=== PATIENT | male | born 1950 | race Caucasian/White ===

== ENCOUNTER 2025-11-01 17:16 | Inpatient (IN) | payer OTHER, SELFPAY ==
[2025-11-01 10:01] VITALS: BP 142/84
[2025-11-01 13:27] VITALS: BP 122/65
[2025-11-01 13:43] LABS: Hematocrit 47.5 % (39.0-52.0); Hemoglobin 16.1 g/dL (13.0-18.0); Mean Corp Hgb Conc. 33.9 g/dL (33.0-37.0); Mean Corpuscular Volume 85.6 fL (80.0-94.0); Nucleated Red Blood Cells % 0 % (-); Platelet Count 223 10^3/uL (130-400); Red Cell Dist. Width 13.9 % (11.5-14.5)
[2025-11-01 13:55] LABS: INR 1.15; PT 14.8 Sec (11.4-14.6)
[2025-11-01 13:58] LABS: Blood Urea Nitrogen 20 mg/dl (9-20); Calcium 9.8 mg/dl (8.4-10.2); Carbon Dioxide 29 mmol/L (22-30); Chloride 101 mmol/L (98-107); Glucose 98 mg/dl (70-99); Sodium 138 mmol/L (135-145); eGFR > 60.00
[2025-11-01 14:00] VITALS: BP 125/79
[2025-11-01 14:11] LABS: Troponin I 0.036 ng/ml
--- NOTE | 2025-11-01 14:50 | ED.GENMED ---
History of Present Illness
<Gary Peck PA-C - Last Filed: 11/01/25 16:49>
General
Chief Complaint: Breathing Problem
Time Seen by Provider: 11/01/25 13:03
History of Present Illness
History of Present Illness:
75-year-old male with history of hypertension and sleep apnea presents to the emergency department for evaluation of dyspnea on exertion over the past week. He is a [employer] and quite active typically, he reports breathlessness with simple activities
and decreased exercise tolerance. Denies any chest pain at rest or with exertion. No leg swelling or calf cramping. No paroxysmal nocturnal dyspnea although he does wear BiPAP at nighttime. No prior history of coronary disease
Past History
<Gary Peck PA-C - Last Filed: 11/01/25 16:49>
Past History
ED Past Medical History: HTN and Other (Sleep apnea)
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
Social History
Tobacco: Non-smoker
Alcohol: None
Drug: None
Personal:
Living: with family
Review of Systems
<Gary Peck PA-C - Last Filed: 11/01/25 16:49>
Review of Systems
Allergies reviewed?: Yes
All Other Systems: ROS reviewed and negative except as documented in HPI and ROS
Phy Exam
<Gary Peck PA-C - Last Filed: 11/01/25 16:49>
Physical Exam
Physical Exam:
GEN: Well appearing, NAD, WDWN
HEENT: Oral mucosa moist, no scleral icterus
Cardiac: Irregular and tachycardic, no murmur
Lung: No respiratory distress, no tachypnea, lungs CTAB
MSK: No gross deformity or injuries, no significant pedal edema
Skin: Good color, no pallor or jaundice, no rashes
Neuro: AO x3, moves all extremities freely
Psych: Calm, cooperative
Scores
<Gary Peck PA-C - Last Filed: 11/01/25 16:49>
Heart Failure Risk
Heart Failure Risk Score: Not Applicable
Course
<Gary Peck PA-C - Last Filed: 11/01/25 16:49>
Orders/Labs/Results
Orders:
Orders
11/01/25 10:04
EKG [Electrocardiogram (*1)] Urgent
Reason for Study: Shortness of Breath
CR Chest - 2 Views Urgent
Comment:
Reason For Exam: SOB
11/01/25 10:05
EKG- Treatment ONCE
11/01/25 13:25
Basic Metabolic Panel Urgent
Complete Blood Count/With Diff Urgent
NT-proBNP Urgent
Prothrombin Time Urgent
Troponin I Urgent
11/01/25 15:14
Potassium Urgent
TSH Urgent
Comment: ADDON
11/01/25 16:10
Add On- LAB Urgent
Tests Added?: tsh
11/01/25 16:23
Furosemide [Lasix] 20 mg IV NOW STA
Potassium Chloride [KCl] 20 meq PO NOW STA
11/01/25 16:27
Admit/Transfer Patient As Directed
Co-Sign Provider:
Level of Care: Inpatient admission
Assign to:: Telemetry
Physician / Group: Hospitalist
Diagnosis: Acute CHF
Reason for Telemetry: Arrhythmia
Date to Stop Telemetry: 11/04/25
Time to Stop Telemetry: 11:00
Reason for Hospitalization: Acute CHF
Expected length of stay greater than two midnights?: Yes
ELOS- Estimated Length of Stay in days: 3
I certify the patient meets the requirements for IP care: Yes
PRN Pain Medication Management As Directed
May give lesser potent ordered pain med per pt: Yes
preference::
Protocol:: Medication orders for pain may be administered in a
manner that supports deferring to patient preference
when the pt is:
- Requesting an ordered lesser potent pain medication.
Least to most potent pain medications are defined
as: acetaminophen < NSAID < tramadol < opioids
(morphine, oxycodone, hydromorphone).
- Requesting a lesser dose of the same medication IF
ORDERED.
- Requesting a less intrusive route of administration
if both routes are prescribed by the provider (PO <
IV).
11/01/25 16:31
Code Status As Directed
Resuscitation Status: Limited DNR
Limited DNR: -No intubation
11/02/25 06:00
Hemoglobin A1c [Glycohemoglobin (HgbA1c)] IN AM
11/04/25 11:00
DC Protocol for Telemetry ONCE
Abnormal Lab Results
11/01/25 11/01/25
13:25 15:14
Absolute Neuts (auto) 7.1 H 10^3/uL
(1.4-6.5)
Absolute Monos (auto) 1.0 H 10^3/uL
(0.1-0.6)
Monocytes % 9.8 H %
(1.7-9.3)
PT 14.8 H Sec
(11.4-14.6)
Potassium 3.4 L mmol/L
(3.5-5.1)
Troponin I 0.036 H* ng/ml
11/01/25 13:25
11/01/25 15:14
Vital Signs
Initial and Last Documented VS:
Initial Vital Signs
Temp Pulse Resp BP Pulse Ox
98.8 F 82 17 142/84 97
11/01/25 10:01 11/01/25 10:01 11/01/25 10:01 11/01/25 10:01 11/01/25 10:01
Last Documented Vital Signs
Temp Pulse Resp BP Pulse Ox
98.8 F 95 21 134/78 97
11/01/25 10:01 11/01/25 15:15 11/01/25 15:15 11/01/25 15:00 11/01/25 14:53
<Amalia Shaffer, - Last Filed: 11/01/25 16:18>
Orders/Labs/Results
Orders:
Orders
11/01/25 10:04
EKG [Electrocardiogram (*1)] Urgent
Reason for Study: Shortness of Breath
CR Chest - 2 Views Urgent
Comment:
Reason For Exam: SOB
11/01/25 10:05
EKG- Treatment ONCE
11/01/25 13:25
Basic Metabolic Panel Urgent
Complete Blood Count/With Diff Urgent
NT-proBNP Urgent
Prothrombin Time Urgent
Troponin I Urgent
11/01/25 15:14
Potassium Urgent
TSH Urgent
Comment: ADDON
11/01/25 16:10
Add On- LAB Urgent
Tests Added?: tsh
11/01/25 16:23
Furosemide [Lasix] 20 mg IV NOW STA
Potassium Chloride [KCl] 20 meq PO NOW STA
11/01/25 16:27
Admit/Transfer Patient As Directed
Co-Sign Provider:
Level of Care: Inpatient admission
Assign to:: Telemetry
Physician / Group: Hospitalist
Diagnosis: Acute CHF
Reason for Telemetry: Arrhythmia
Date to Stop Telemetry: 11/04/25
Time to Stop Telemetry: 11:00
Reason for Hospitalization: Acute CHF
Expected length of stay greater than two midnights?: Yes
ELOS- Estimated Length of Stay in days: 3
I certify the patient meets the requirements for IP care: Yes
PRN Pain Medication Management As Directed
May give lesser potent ordered pain med per pt: Yes
preference::
Protocol:: Medication orders for pain may be administered in a
manner that supports deferring to patient preference
when the pt is:
- Requesting an ordered lesser potent pain medication.
Least to most potent pain medications are defined
as: acetaminophen < NSAID < tramadol < opioids
(morphine, oxycodone, hydromorphone).
- Requesting a lesser dose of the same medication IF
ORDERED.
- Requesting a less intrusive route of administration
if both routes are prescribed by the provider (PO <
IV).
11/01/25 16:31
Code Status As Directed
Resuscitation Status: Limited DNR
Limited DNR: -No intubation
11/02/25 06:00
Hemoglobin A1c [Glycohemoglobin (HgbA1c)] IN AM
11/04/25 11:00
DC Protocol for Telemetry ONCE
Abnormal Lab Results
11/01/25 11/01/25
13:25 15:14
Absolute Neuts (auto) 7.1 H 10^3/uL
(1.4-6.5)
Absolute Monos (auto) 1.0 H 10^3/uL
(0.1-0.6)
Monocytes % 9.8 H %
(1.7-9.3)
PT 14.8 H Sec
(11.4-14.6)
Potassium 3.4 L mmol/L
(3.5-5.1)
Troponin I 0.036 H* ng/ml
11/01/25 13:25
11/01/25 15:14
Vital Signs
Initial and Last Documented VS:
Initial Vital Signs
Temp Pulse Resp BP Pulse Ox
98.8 F 82 17 142/84 97
11/01/25 10:01 11/01/25 10:01 11/01/25 10:01 11/01/25 10:01 11/01/25 10:01
Last Documented Vital Signs
Temp Pulse Resp BP Pulse Ox
98.8 F 95 21 134/78 97
11/01/25 10:01 11/01/25 15:15 11/01/25 15:15 11/01/25 15:00 11/01/25 14:53
<Gary Peck PA-C - Last Filed: 11/01/25 16:49>
MDM/Problems Addressed
MDM/Problems Addressed:
75-year-old male presented with exertional dyspnea found to have mildly elevated proBNP and troponin. Clinical picture CHF given pulmonary edema/interstitial findings on chest x-ray. Will require admission to the hospital for further management.
Telemetry noted for periods of atrial tachycardia with ectopy, do not see any evidence for A-fib
<Gary Peck PA-C - Last Filed: 11/01/25 16:49>
Comment
Comment:
EKG independently interpreted by me shows a sinus tachycardia at a rate of 104 with ectopy
Telemetry monitoring shows narrow complex tachycardia with severe ectopy, likely multifocal atrial tachycardia
*Pulse Oximetry
SaO2: 97
Oxygen Mode of Delivery: Room air
Patient hypoxic: no
*Critical Care Note
Total Time (30-74mins, 75-104mins- exclusive of procedures): Not Applicable
ED Attending Note
<Gary Peck PA-C - Last Filed: 11/01/25 16:49>
-
Portions of this chart may have been created with voice recognition software.� Occasional wrong word or��sound alike� substitutions may have occurred due to the inherent limitations of voice recognition software.
<Amalia Shaffer DO - Last Filed: 11/01/25 16:18>
ED Attending Note
Patient seen and examined by attending physician: Yes
I performed the substantive portion of visit, reviewed & personally made and approve the management plan that is documented in note by myself or MICHELLE.: Yes
I performed a history and physical exam of patient and discussed management with resident, I reviewed resident's note and agree with documented findings and plan of care.: Yes
ED Attending Note:
75-year-old male with no known cardiac history presenting to the emergency department with worsening dyspnea. Notes increasing dyspnea with exertion over the past week. Does note some family history of cardiac disease. Denies any associated chest
pain. Does also note some lower extremity swelling. Reports dyspnea with previously tolerated activities. Denies cough or fever. Vital signs on arrival are normal.
On exam patient is resting comfortably, no acute distress. No increased work of breathing. However on lung exam, crackles at the bases. Also noted to have some mild swelling to bilateral lower extremities, symmetric. Labs and chest x-ray imaging
obtained prior to my assessment. EKG nonischemic. Labs show elevated BNP and minimal elevation of troponin, suspected to be from ischemic demand rather than ACS in the absence of any present chest pain. Chest x-ray confirms signs of pulmonary
edema. At this time concern for new onset CHF. Plan for admission with cardiac consultation. Will start Lasix
Discharge Plan
Departure
Patient Disposition: Admit
Date of Disposition: 11/01/25
Time of Disposition: 14:53
Admit to: Telemetry
Presentation/result/management discussed w/ accepting MD/DO: Hospitalist
Discharge Problem:
Acute CHF
Prescriptions:
No Action
lutein 20 MG tablet
20 mg PO DAILY
docusate sodium 100 MG capsule
100 mg PO BID
amlodipine [Norvasc] 10 MG tablet
10 mg PO DAILY Qty: 0 0RF
Rx Instructions:
Hold if systolic blood pressure <130 while on Tramadol.
multivitamin Tablet
1 tab PO DAILY
benazepril-hydrochlorothiazide 20-25 mg Tablet
1 tab PO BID
Referrals:
Aamir Avalos MD [Family Provider, Internal Medicine]
Interventions
Interventions:
*General Assessment Last Done: 11/01/25 10:04
*Neglect/Abuse Screening Last Done: 11/01/25 10:04
*ED COVID-19 Vaccine History Last Done: 11/01/25 10:04
*ED Influenza Vaccine History Last Done: 11/01/25 10:04
[facility] Fall Risk Assessment Tool Last Done: 11/01/25 09:44
*Risk Screen - Suicide (C-SSRS) Last Done: 11/01/25 10:04
ED- Cardiac Assessment Last Done: 11/01/25 14:45
ED- Pulmonary Assessment Last Done: 11/01/25 14:45
Discharge Date and Time
Print Language: SINHALA
[2025-11-01 15:00] VITALS: BP 134/78
[2025-11-01 15:41] LABS: Potassium 3.4 mmol/L (3.5-5.1)
--- NOTE | 2025-11-01 17:02 | HPS.HSE ---
Addendum entered and electronically signed by Angelique Feliciano MD 11/01/25 18:08:
I personally performed a history and physical exam of the patient and discussed management with the resident. I reviewed the resident's note and agree with the documented findings and plan of care HPI/CC.
GENERAL: well developed, well nourished, male in no apparent distress
HEENT: NC/AT--no O2 requirements--no JVD
HEART: irreg irreg
LUNGS : clear to auscultation bilaterally--no crackles
ABDOM: soft, nontender, nondistended, + bowel sounds
EXT: no cyanosis, clubbing-- 2+ pitting edema bilaterally
NEUROLOGIC: grossly intact
Dyspnea on exertion-- does not give good story for PE, CHF, infection, COPD --possibly mild CHF exacerbation from new onset atrial tachycardia (think afib vs sinus with PVC, PACs giving irregular heart exam) or ischemic demand due to increased
heart rate from arrhythmia--wants to see Dr. Spangler for cards follow up--consult [facility]--check ECHO--lasix 20 mg IV daily--check TFTs, mag, potassium--would check CT scan chest PE study to rule out--Metoprolol 5mg IV Q6 for rate control and CHF
--check lipids
elevated troponin-non ischemic myocardial injury due to acute heart failure vs ischemic demand from tachycardia /arrhythmia-trending troponin
lower extremity edema--does take norvasc at elevated dose which can cause edema--no suspicion for DVT--cont lasix--if CT PE positive then would check US to r/o DVT, if CT neg, would not as no suspicion for DVT
Essential Hypertension --stop amlodipine and benazepril-hydrochlorothiazide--start Lopressor 5 mg q6 and lasix
obstructive sleep apnea --continue bipap
DVT proph- Lovenox
code status -Limited DNR (NO INTUBATION)
Original Note:
Family Physician
-
Family Physician: Aamir Avalos
Chief Complaint
-
Shortness of breath on excretion
History of Present Illness
75-year-old male with history of hypertension and sleep apnea presents to the emergency department for evaluation of dyspnea on exertion that has been progressed over the past week. He is a [employer] and quite active typically, he reports
breathlessness with simple activities and decreased exercise tolerance. Denies any chest pain at rest or with exertion. No leg swelling or calf cramping. No paroxysmal nocturnal dyspnea although he does wear BiPAP at nighttime. No prior history
of coronary disease. Denies dizziness , lightheadedness.
Medical History
Past Medical History
Past Medical History: Reports Other
Additional Past Medical History:
Hypertension, Sleep apnea on BIPAP
Past Surgical History: Reports Orthopedic (Bilateral knee replacement , left hip replacement )
Social History
Tobacco: Non-smoker
Alcohol: None
Drug: None
Personal:
Living: With Family
Employment: Employed
Family History
Family History: Other (father with premature heart attach , Mother with CHF, brother with A.fib and CAD with stent , DM2)
Allergies / Home Medications
Allergies reflects when Allergies were last updated in [facility].
Allergies
Allergy/AdvReac Type Severity Reaction Status Date / Time
No Known Allergies Allergy Verified 11/01/25 10:02
Home Medications
lutein 20 mg tablet 20 mg PO DAILY 11/01/16
docusate sodium 100 mg capsule 100 mg PO BID 10/22/20
amlodipine 10 mg tablet (Norvasc) 10 mg PO DAILY ##0 11/18/20
benazepril 20 mg-hydrochlorothiazide 25 mg tablet 1 tab PO BID 07/06/23
multivitamin 1 tab PO DAILY 07/06/23
Home Medications with original date entered in [facility]
Allergy/Medication List:
Allergies
Allergy/AdvReac Type Severity Reaction Status Date / Time
No Known Allergies Allergy Verified 11/01/25 10:02
Home Medications
lutein 20 mg tablet 20 mg PO DAILY 11/01/16
docusate sodium 100 mg capsule 100 mg PO BID 10/22/20
amlodipine 10 mg tablet (Norvasc) 10 mg PO DAILY ##0 11/18/20
benazepril 20 mg-hydrochlorothiazide 25 mg tablet 1 tab PO BID 07/06/23
multivitamin 1 tab PO DAILY 07/06/23
Review of Systems
-
History Source: Patient
Constitutional: Reports No Symptoms
Respiratory: Reports Cough
Cardiac: Reports Other (shortness of breath on exertion )
Abdomen/GI: Reports No Symptoms
: Reports No Symptoms
Musculoskeletal: Reports Edema (Bilateral leg edema )
Physical Exam
Vital Signs
Vital Signs
Temp Pulse Resp BP Pulse Ox
98.8 F 95 21 134/78 97
11/01/25 10:01 11/01/25 15:15 11/01/25 15:15 11/01/25 15:00 11/01/25 14:53
Physical Exam
General: Well Developed, Well Nourished and No Apparent Distress
HEENT: NormoCephalic, Anicteric and Moist mucous membranes
Respiratory: Clear
Cardiac: S1/S2 and Irregular Rhythm
GI: Soft, Non Tender, Non Distended and Normal Bowel Sounds
Musculoskeletal: Edema, Left Lower Extremity and Edema, Right Lower Extremity
Skin: Warm and Dry
Neuro: Awake, Alert, Oriented and AO x 3
Psych: Calm
Laboratory Results
-
11/01/25 13:25
11/01/25 15:14
Laboratory Results
PT 14.8 Sec (11.4-14.6) H 11/01/25 13:25
INR 1.15 11/01/25 13:25
Total Bilirubin Cancelled 11/01/25 13:25
AST Cancelled 11/01/25 13:25
ALT Cancelled 11/01/25 13:25
Alkaline Phosphatase Cancelled 11/01/25 13:25
Troponin I 0.036 ng/ml H* 11/01/25 13:25
Impression/Plan
-
IMPRESSION:
75-year-old male with no known cardiac history presenting to the emergency department with worsening dyspnea. Notes increasing dyspnea with exertion over the past week. Does note some family history of cardiac disease. Denies any associated chest
pain. Does also note some lower extremity swelling. Reports dyspnea with previously tolerated activities. Denies cough or fever. Vital signs on arrival are normal.
EKG nonischemic. Labs show elevated BNP and minimal elevation of troponin, suspected to be from ischemic demand rather than ACS in the absence of any present chest pain. Chest x-ray confirms signs of pulmonary edema. At this time concern for new
onset CHF. Plan for admission with cardiac consultation.
PLAN:
#Dyspnea on exertion
Atrial tachycardia vs A. fib that exacerbates underlying CHF vs ischemic demand due to increased heart rate from arrhythmia less likely PE
- chest x ray Mild interstitial opacities with minimal lower lobe airspace opacities. There are small opacity within the minor fissure. Blunting of the costophrenic angle suggestive of trace pleural effusions.
- start 20 mg lasix IV stat and another done late evening
- BNP 873
- Metoprolol 5mg IV Q6 for rate control and CHF
- lipid panel
- ECHO
- Cardiology consulted
#Atrial tachycardia
-Atrial tachycardia vs A. fib , less likely PE
-D dimer
-TSH
-start Lopressor 5mg q6
#elevated troponin
-non ischemic myocardial injury due to acute heart failure vs ischemic demand from tachycardia /arrhythmia
-trending troponin
#Leg swelling
-likely acute CHF
-start Lasix 20 mg BID
# Hypertension
stop amlodipine and benazepril-hydrochlorothiazide
start Lopressor 5 mg q6
#sleep apnea
continue bipap
DVT - Lovenox
code status -Limited DNR (NO INTUBATION)
[2025-11-01] MEDS: LASIX 20 MG IV ×2 (17:03→20:28)
[2025-11-01] MEDS: KCL 20 MEQ PO (17:04)
[2025-11-01 18:00] LABS: TSH 2.62 uIU/ml (0.47-4.68)
[2025-11-01 18:46] VITALS: BP 118/75
[2025-11-01 18:47] VITALS: BMI 35.9
[2025-11-01 19:32] LABS: D-Dimer 1.89 ug/mlFEU (0.00-0.50)
[2025-11-01] MEDS: LOVENOX 40 MG SC (19:46)
[2025-11-01] MEDS: LOPRESSOR 5 MG IV (19:46)
[2025-11-01 20:00] LABS: Magnesium 1.8 mg/dl (1.6-2.3)
[2025-11-01 20:08] LABS: Troponin I 0.039 ng/ml
[2025-11-01 23:32] VITALS: BP 106/62
[2025-11-02] VITALS (13 sets, daily range): BP systolic 99–130; BP diastolic 57–74; BMI 35.0
[2025-11-02] MEDS: LOPRESSOR IV ×2 (01:29→06:14)
[2025-11-02 02:00] LABS: Troponin I 0.042 ng/ml
[2025-11-02 07:50] LABS: Hematocrit 49.4 % (39.0-52.0); Hemoglobin 16.9 g/dL (13.0-18.0); Mean Corp Hgb Conc. 34.2 g/dL (33.0-37.0); Mean Corpuscular Volume 86.7 fL (80.0-94.0); Platelet Count 209 10^3/uL (130-400); Red Cell Dist. Width 14.1 % (11.5-14.5)
[2025-11-02 08:09] LABS: Troponin I 0.047 ng/ml
--- NOTE | 2025-11-02 09:05 | CON.CAR ---
Addendum entered and electronically signed by Filiberto Pruitt MD 11/02/25 12:12:
I reviewed and agree with the note by TRACEY and it accurately reflects our care.
I saw and evaluated the patient, and I provided the substantive portion of the medical decision making. My assessment and plan is below:
75-year-old man with hypertension, obstructive sleep apnea, and obesity who presents with dyspnea on exertion for the past 10 days. He denies chest pain/pressure. He does not monitor his weight, thinks he may have some mild worsening of chronic
lower extremity edema. Denies orthopnea and palpitations.
Physical exam: Irregular rhythm, no murmurs, bibasilar crackles, 1+ edema to mid shins bilaterally
TTE 11/02/2025: LVEF 25-30%, mildly dilated LV, global hypokinesis, mild AR, mild MR
Labs notable for troponin 0.036 -> 0.047
ECG: Sinus rhythm with PACs and PVCs
Acute heart failure with reduced ejection fraction: Unclear etiology. Plan for left heart catheterization today. Start metoprolol XL 25 mg daily and spironolactone 25 mg daily. We will ask case management to bruno Entresto and SGLT2 inhibitor.
Continue IV Lasix 20 mg twice daily.
Multifocal atrial tachycardia: Asymptomatic. Start beta-louisa as above.
Troponin elevation: Most likely represents acute nonischemic myocardial injury in the setting of CHF exacerbation.
Original Note:
Consultation
Consultation Request
Date/Time Consultation Requested: 11/02/25 0846
Date/Time Consultation Performed: 11/02/25 0900
Requesting Provider: Dr. Mccarty
Performing Provider: Antoinette WEBB for Dr. Pruitt
Reason for Consultation: NIETO, possible CHF, PAC's
Medical History
-
Chief Complaint: SOB
History of Present Illness:
75 y/o male with hypertension, sleep apnea on Bipap, and obesity who is here for about 1.5 weeks of progressive NIETO. He is friends with athletic monitor Dr. Spangler who recommended he go to ER for evaluation. He is admitted for further evaluation dn we
are consulted to assess for possible CHF/arrhythmia. He was started on metoprolol and Lasix. At the time of my assessment, he is calm and comfortable. He is OOB to chair. Troponin is minimally elevated. He denies any CP. EKG shows SR with
PAC's/PVC's. Denies any weight gain, orthopnea, PND, or increased edema.
Past Medical History
Past Medical History: HTN and Other (as above)
Social History
Tobacco: Non-Smoker
Alcohol: None
Drug: None
Employment: Employed ([employer] )
Family History
Family History: Early CAD (dad)
Allergies / Home Medications
Allergy/AdvReac Type Severity Reaction Status Date / Time
No Known Allergies Allergy Verified 11/01/25 10:02
�Medication �Instructions �Recorded �Confirmed �Type
lutein 20 mg tablet 20 mg PO DAILY Supplement 11/01/16 11/01/25 History
docusate sodium 100 mg capsule 100 mg PO BID STOOL SOFTENER 10/22/20 11/01/25 History
amlodipine 10 mg tablet (Norvasc) 10 mg PO DAILY ##0 11/18/20 11/01/25 Rx
benazepril 20 1 tab PO BID Blood Pressure 07/06/23 11/01/25 History
mg-hydrochlorothiazide 25 mg tablet
multivitamin 1 tab PO DAILY Supplement 07/06/23 11/01/25 History
Review of Systems
-
History Source: Patient
All other systems: Negative unless noted
Respiratory: Trouble Breathing
Physical Exam
Vital Signs
Temp Pulse Resp BP Pulse Ox
97.6 F 88 20 92/55 94
11/02/25 03:25 11/02/25 06:14 11/02/25 03:25 11/02/25 06:14 11/02/25 03:25
Lab Results
11/02/25 07:30
Troponin I 0.047 ng/ml H* 11/02/25 07:30
Cid-O-Eoislhetank Pept 873 pg/ml 11/01/25 13:25
Physical Exam
General: Well Developed and Well Nourished
HEENT: Normocephalic and Anicteric
Respiratory: Clear and Non Labored Respirations
Cardiac: Irregular Rhythm
Musculoskeletal: Edema (mild BLE edema)
Skin: Warm and Dry
Neuro: AO x 3
Psych: Calm
Impression / Plan
-
NIETO:
-possible acute HF (type unknown)- BNP mildly elevated, but otherwise denies any orthopnea, PND, weight gain, or increased edema (chronic mild BLE edema noted); monitor response to IV diuresis (which requires intensive monitoring). I don't think he
will need too much more. Obtain echo.
-also with periods of MAT on monitor to my review (though I will review with athletic monitor). Denies any history of smoking/lung disease. Also with PAC's, PVC's. Follow telemetry. Replace K+. Received a dose of IV metoprolol, will transition to PO-
monitor telemetry
-of note, plans to follow with Dr. Spangler in follow-up (his friend/athletic monitor).
Abnormal troponin:
-suspect acute, non-ischemic myocardial injury in setting of tachycardia and possible mild CHF (see above)
-denies CP
-check echo
HTN:
-stable, though on low end occasionally
-on CCB/ACEI/HCTZ as OP- these are held and he is now on metoprolol and Lasix
Sleep apnea:
-stable in that he is compliant with bipap
Data Reviewed
-
EKG: Tracing Personally Visualized and interpreted (SR with PAC's and PVC's)
Radiology: Report Reviewed by me (CXR: Mild interstitial opacification with minimal basilar airspace opacities. This likely represents mild edema, however pneumonia cannot be excluded. Blunting of the costophrenic angle suggestive of trace pleural
effusions. Additionally there is a small opacity in the right minor fissure)
CT Scan: Report Reviewed by me (No acute disease of the chest. No pulmonary embolus. Tiny bilateral pleural effusions. Mild cardiomegaly Probable left adrenal mass. Incompletely imaged. Nonurgent CT examination of the adrenal glands or MRI
examination recommended when the patient is able.)
Medical Tests (Nuc Med, Echo etc): Other (echo ordered and pending)
Labs: Labs Reviewed by me
[2025-11-02 09:19] LABS: ALT (SGPT) 37 U/L (0-50); AST (SGOT) 37 U/L (17-59); Albumin 4.9 g/dl (3.5-5.0); Alkaline Phosphatase 83 U/L (38-126); Blood Urea Nitrogen 17 mg/dl (9-20); Calcium 10.2 mg/dl (8.4-10.2); Carbon Dioxide 30 mmol/L (22-30); Chloride 101 mmol/L (98-107); Estimated Creatinine Clearance 96 ml/min; Glucose 126 mg/dl (70-99); HDL Cholesterol 71 mg/dl; LDL Cholesterol, Calculated 98 mg/dl; Potassium 3.7 mmol/L (3.5-5.1); Sodium 139 mmol/L (135-145); Total Protein 8.3 g/dl (6.3-8.2); Very Low Density Lipoprotein 24 mg/dl (0-30); eGFR > 60.00
--- NOTE | 2025-11-02 09:42 | W.PN.HOSP.TC ---
Today's Communication/Plan
-
Echocardiogram
EKG
Per Cardiology :
-Plan for left heart catheterization today
-Start metoprolol XL 25 mg daily
-Start spironolactone 25 mg daily
-ask case management to bruno Entresto and SGLT2 inhibitor
-Continue IV Lasix 20 mg twice daily.
NPO today for cath today
Assessment / Plan
Assessment / Plan
#Dyspnea on exertion
#Type II NSTEMI
#Sinus tachycardia with PACs/PVCs
#Acute heart failure with reduced ejection fraction: Unclear etiology.
Cardiology consulted- TTE 11/02/2025: LVEF 25-30%, mildly dilated LV, global hypokinesis, mild AR, mild MR
Question an arrhythmia associated cardiomyopathy, intermittent tachycardia on arrival, BNP 873
Was started on IV Lasix 20 mg twice daily with good urine output though developed hypotension
Upon arrival troponin trend flat, peaked at 0.47, ECG without acute ischemic findings, Most likely represents acute nonischemic myocardial injury in the setting of CHF exacerbation.
Plan
cardiology following
Continue IV Lasix 20mg BID
Discontinue Lopressor IV 5mg Q6
Plan for left heart catheterization today
Start metoprolol XL 25 mg daily
Start spironolactone 25 mg daily
We contact case management to bruno Entresto and SGLT2 inhibitor
Consider LHC/RHC
Monitor telemetry
BMP + I's and O's + weights
#Primary hypertension
Home medications include benazepril, HCTZ, amlodipine
Blood pressure here soft following IV diuresis, holding home regimen
Plan to reinitiate antihypertensive regimen as hemodynamics improved
#SWATI on nightly BiPAP
Utilizes BiPAP 10/5 nightly, SWATI secondary to obese habitus
Continue with nightly BiPAP here nightly and encourage compliance at discharge
TTE for signs of RV strain or pulmonary hypertension:
TTE 11/02/2025: LVEF 25-30%, mildly dilated LV, global hypokinesis, mild AR, mild MR
Diet: NPO for possible cat
DVT: SQ Lovenox
Code: Limited DNR (no intubation)
Dispo: PT evaluation ordered
Discussed with clean rice grader and reel tender
Anticipated Discharge: 24 - 48 hours
Subjective/Interval History
-
Date of Service: November 02, 2025
He had low blood pressure this morning 90s/50s , metoprolol dose not given. He denies shortness of breath , chest pain, dizziness, lightheadedness.
Objective Data
-
Labs:
Laboratory Results
11/02/25
07:30
WBC 8.9
Hgb 16.9
Hct 49.4
Plt Count 209
Sodium 139
Potassium 3.7
Chloride 101
Carbon Dioxide 30
BUN 17
Creatinine 0.8
Glucose 126 H
Calcium 10.2
Total Bilirubin 2.4 H
AST 37
ALT 37
Alkaline Phosphatase 83
Vital Signs:
Vital Signs
Temp Pulse Resp BP Pulse Ox
98.4 F 98 18 128/74 99
11/02/25 07:30 11/02/25 07:30 11/02/25 07:30 11/02/25 07:30 11/02/25 07:30
I&O
11/01/25 11/02/25 11/03/25
06:59 06:59 06:59
Intake Total 0 / 0
Output Total 1425 / 1425
Balance -1425 / -1425
Review of Systems
-
History Source: Patient
Respiratory: Reports No Symptoms
Cardiac: Reports No Symptoms
Abdomen/GI: Reports No Symptoms
Musculoskeletal: Reports Edema (Bilateral)
Neuro: Reports No Symptoms
Physical Exam
-
General: Well Developed, Well Nourished and No Apparent Distress
Respiratory: Clear to Auscultation
Cardiac: S1/S2 and Irregular Rhythm
GI: Soft, Nontender and Nondistended
Musculoskeletal: Edema, Right Lower Extrem and Edema, Left Lower Extrem
Skin: Warm and Dry
Neuro: Awake, Alert, Oriented and AO x 3
Psych: Calm
[2025-11-02] MEDS: KCL 20 MEQ PO (10:06)
[2025-11-02 10:28] LABS: Glycohemoglobin (HgbA1c) 6.3 % (4.0-5.9)
--- NOTE | 2025-11-02 11:08 | CARDSERVLU ---
Echocardiogram with Lumason completed after protocol screening completed. Allergies verified.
Patent IV site: _Left antecubital 20 G PC____
IV site flushed with 0.9% NaCl pre and post administration.
Diluted bolus method utilized to enhance visualization of ventricular knowles.
Total volume given: ___3_ mL
Patient tolerated all procedures well without complications.
--- NOTE | 2025-11-02 11:32 | CM ---
Addendum entered by Neri Victoria 11/02/25 15:46:
CM consulted for coverage for Farxiga, Jardiance and Entresto. Patient has [employer] rx plan
CM spoke w/ [employer]. All medications are covered and estimated co pays are as follows:
Farxiga 30 day- $144.39, 90 day mail order- $401.03
Jardiance 30 day- $151.54, 90 day- $420.90
Entresto 30 day- $169.76, 90 day- $471.58
Updated ordering physician
Original Note:
Patient seen bedside, initial assessment completed. Patient is a 75-year-old male with history of hypertension and sleep apnea presents to the emergency department for evaluation of dyspnea on exertion.
Patient resides w/ spouse in a 2 story farmhouse, 1 step to enter. Patient's son lives on the other side of the home. Patient is independent w/ ambulation, no device required. Independent w/ ADLs and personal care. Patient uses Bipap at night. No
recent OP PT, last episode 2 years ago. VN about 3 years ago, nothing recent.
Address, point of contact and insurance verified
PCP: Aamir Avalos
Pharmacy: [facility]
PT/OT ordered, will review recommendations if any
Plan: Anticipate home
[2025-11-02] MEDS: LASIX 20 MG IV ×2 (11:37→17:29)
[2025-11-02] MEDS: TOPROL XL 25 MG PO (11:40)
[2025-11-02] MEDS: ASPIRIN 325 MG PO (12:08)
--- NOTE | 2025-11-02 14:27 | PTCARENOTE ---
Addendum entered by Lydia Dalton 11/02/25 14:44:
Consent obtained at bedside by Dr. Macdonald
Original Note:
Patient arrived to [facility] bay 8. Vital signs obtained. Left IV 20G checked. Dr. Macdonald notified. Patient AAOx3. Denies chest pain.
--- NOTE | 2025-11-02 16:54 | ITS.CL.CATH ---
Cnc Mechanic - Catheterization
Cardiac Catheterization
Procedure Report:
RIGHT AND LEFT HEART CATHETERIZATION
Date of Procedure: November 02, 2025
Primary Care Physician: Dr. Aamir Avalos
Primary Bread Wrapper Operator: Dr. Gilson Spangler
Procedures performed:
1: Coronary angiography
2: Left ventriculography
3: Right heart cardiac catheterization
INDICATION: The patient is a 75-year-old man who presents with chest discomfort and mild heart failure. Echo shows severe LV systolic dysfunction. He was referred for right and left heart cardiac catheterization. Of note, he was given IV Lasix
and diuresed and now feels better.
ACCESS: The patient was prepped and draped in usual sterile fashion. A 6 Bahamian sheath was placed in the right radial artery using the Seldinger over the wire technique. A 5 Bahamian sheath was then placed in the right common femoral vein using the
same technique. Due to tortuosity at the takeoff of the great vessel and unusual orientation of the aorta, I elected to abandon the radial approach and gained access with a micropuncture kit in the right common femoral artery using an [id number]
technique with ultrasound guidance. A 6 Bahamian sheath was placed in the right common femoral artery.
HEMODYNAMIC FINDINGS (mmHg):
RA(a,v,m): 15, 10, 10
RV(s/d,EDP): 46/7, 13
PA(s/d/m): 46/25, 28
PCWP(a,v,m): 21, 22, 17
LV(s/d,EDP): 125/20, 38
Ao(s/d,m): 125/74, 97
Oxygen Saturations (mg/dl):
PA: 65% on room air
LV: 91% on room air
Cardiac Output/Index (l/min / l/min/m2):
Estimated Deepika Method: 5.0 / 2.2
VALVE HEMODYNAMICS:
No significant aortic or mitral valve stenosis.
ANGIOGRAPHIC FINDINGS:
Single-plane Left Ventriculography in GUILLORY Projection: Severe global LV systolic dysfunction with LV dilation. Visually estimated ejection fraction 20%. No significant mitral regurgitation.
Coronary Angiography:
Dominance: Right
Left Main: Large-caliber, normal.
Left Anterior Descending: The left anterior descending artery is a large-caliber vessel that tapers down to a medium caliber vessel in the midportion. The LAD gives rise to a small high first diagonal branch and a large bifurcating second diagonal
branch. These vessels have very mild nonobstructive luminal irregularities with normal distal flow.
Left Circumflex: The left circumflex is a very large nondominant vessel that gives rise to a huge bifurcating obtuse marginal branch. This vessel is angiographically normal.
Right Coronary: The right coronary artery is a gigantic dominant vessel that gives rise to a large caliber posterior descending artery and smaller posterior left ventricular branch system. The proximal right has a medina's crook anatomy but the
vessels are otherwise normal with no focal disease.
Fluoroscopy Time (min): 12
Radiation Dose (mGy): 679
DAP (Gy.cm2): 62
Closure device: 6 Bahamian Angio-Seal to right common femoral artery. A TR band was applied for hemostasis at the right wrist. The femoral vein groin sheath will be pulled with manual pressure for hemostasis.
Complications: None.
ASSESSMENT:
1: Very mild nonobstructive coronary artery disease. This is clearly a nonischemic cardiomyopathy.
2: Fairly well compensated filling pressures with moderately elevated pulmonary pressures and more markedly elevated LVEDP.
CONCLUSIONS and RECOMMENDATIONS:
1: Medical therapy for a nonischemic cardiomyopathy with close clinical follow-up.
Parminder Macdonald M.D.
Copy to: Dr. Aamir Avalos
[2025-11-02] MEDS: LOVENOX 40 MG SC (17:28)
[2025-11-03 03:29] VITALS: BP 122/67
[2025-11-03 06:00] VITALS: BMI 34.7
--- NOTE | 2025-11-03 07:15 | W.PN.HOSP.TC ---
Today's Communication/Plan
-
Cardiac cath today
plan for discharge per cardiology recommendation:
-aspirin 81 mg tablet daily with food
-atorvastatin 10 mg daily at bedtime
-Furosemide 20mg tablet daily
-Metoprolol succinate 50mg tablet extended release daily
-spironolactone 25 mg tablet daily
-valsartan 80 mg tablet daily
-follow up with your flotation tender for reassessment for ICD after three months of starting above GDMT medications
Assessment / Plan
Assessment / Plan
#Dyspnea on exertion
#Type II NSTEMI
#Sinus tachycardia with PACs/PVCs
#Acute heart failure with reduced ejection fraction: Unclear etiology.
Cardiology consulted- TTE 11/02/2025: LVEF 25-30%, mildly dilated LV, global hypokinesis, mild AR, mild MR
Question an arrhythmia associated cardiomyopathy, intermittent tachycardia on arrival, BNP 873
Was started on IV Lasix 20 mg twice daily with good urine output though developed hypotension
Upon arrival troponin trend flat, peaked at 0.47, ECG without acute ischemic findings, Most likely represents acute nonischemic myocardial injury in the setting of CHF exacerbation.
TTE for signs of RV strain or pulmonary hypertension:
TTE 11/02/2025: LVEF 25-30%, mildly dilated LV, global hypokinesis, mild AR, mild MR
Heart Cath 11/03/2025:
1: Very mild nonobstructive coronary artery disease. This is clearly a nonischemic cardiomyopathy.
2: Fairly well compensated filling pressures with moderately elevated pulmonary pressures and more markedly elevated LVEDP.
Plan
cardiology following
Continue IV Lasix 20mg BID
Discontinue Lopressor IV 5mg Q6
Plan for left heart catheterization today
Start metoprolol XL 25 mg daily
Start spironolactone 25 mg daily
We contact case management to bruno Entresto and SGLT2 inhibitor
Consider LHC/RHC
Monitor telemetry
BMP + I's and O's + weights
#Primary hypertension
Home medications include benazepril, HCTZ, amlodipine
Blood pressure here soft following IV diuresis, holding home regimen
Plan to reinitiate antihypertensive regimen as hemodynamics improved
#SWATI on nightly BiPAP
Utilizes BiPAP 10/5 nightly, SWATI secondary to obese habitus
Continue with nightly BiPAP here nightly and encourage compliance at discharge
Diet: NPO for possible cat
DVT: SQ Lovenox
Code: Limited DNR (no intubation)
Dispo: PT evaluation ordered
Discussed with flotation tender
Anticipated Discharge: Today
Subjective/Interval History
-
Date of Service: November 03, 2025
No overnight event. He denied chest pain, shortness of breath, light headedness or palpitations.
Objective Data
-
Labs:
Laboratory Results
11/03/25
06:00
WBC Pending
Hgb Pending
Hct Pending
Plt Count Pending
Sodium Pending
Potassium Pending
Chloride Pending
Carbon Dioxide Pending
BUN Pending
Creatinine Pending
Glucose Pending
Calcium Pending
Vital Signs:
Vital Signs
Temp Pulse Resp BP Pulse Ox
98 F 84 20 122/67 93
11/03/25 03:29 11/03/25 03:29 11/03/25 03:29 11/03/25 03:29 11/03/25 03:29
I&O
11/02/25 11/03/25 11/04/25
06:59 06:59 06:59
Intake Total 0 / 0 1200 / 1200
Output Total 1425 / 1425 1600 / 1600
Balance -1425 / -1425 -400 / -400
Review of Systems
-
History Source: Patient
Respiratory: Reports No Symptoms
Cardiac: Reports No Symptoms
Abdomen/GI: Reports No Symptoms
Musculoskeletal: Reports Edema (Bilateral)
Neuro: Reports No Symptoms
Physical Exam
-
General: Well Developed, Well Nourished and No Apparent Distress
Respiratory: Clear to Auscultation
Cardiac: S1/S2 and Irregular Rhythm
GI: Soft, Nontender and Nondistended
Musculoskeletal: Edema, Right Lower Extrem and Edema, Left Lower Extrem
Skin: Warm and Dry
Neuro: Awake, Alert, Oriented and AO x 3
Psych: Calm
[2025-11-03 07:58] LABS: Hematocrit 46.9 % (39.0-52.0); Hemoglobin 16.1 g/dL (13.0-18.0); Mean Corp Hgb Conc. 34.3 g/dL (33.0-37.0); Mean Corpuscular Volume 87.2 fL (80.0-94.0); Platelet Count 200 10^3/uL (130-400); Red Cell Dist. Width 14.3 % (11.5-14.5)
[2025-11-03 08:25] LABS: Blood Urea Nitrogen 21 mg/dl (9-20); Calcium 9.3 mg/dl (8.4-10.2); Carbon Dioxide 28 mmol/L (22-30); Chloride 100 mmol/L (98-107); Estimated Creatinine Clearance 96 ml/min; Glucose 114 mg/dl (70-99); Potassium 3.5 mmol/L (3.5-5.1); Sodium 137 mmol/L (135-145); eGFR > 60.00
[2025-11-03 08:35] LABS: Troponin I 0.042 ng/ml
[2025-11-03 08:47] VITALS: BP 141/77
--- NOTE | 2025-11-03 08:58 | W.PN.CD ---
Today's Communication / Plan
-
Okay for discharge from CV standpoint today.
Discharge meds as below
Impression / Plan
-
75-year-old man with hypertension, obstructive sleep apnea, and obesity who presents with dyspnea on exertion for the past 10 days, found to have acute HFrEF.
Cardiology: [place]
Acute heart failure with reduced ejection fraction (EF 25-30%)
- New diagnosis this admission. Due to nonischemic cardiomyopathy. [facility] with very mild nonobstructive coronary artery disease.
- GDMT:
- BB: Metoprolol succinate 50 mg daily started this admission
- HUSAM/ARB/ARNI: Entresto cost prohibitive. Valsartan 80 mg daily started this admission
- MRA: Spironolactone 25 mg daily started this admission
- SGLT2 inhibitor: Cost prohibitive
- Reassess for ICD after 3 months GDMT
- Will discharge on Lasix 20 mg daily (LVEDP 38 mmHg on 11/02/2025)
Abnormal troponin:
-suspect acute, non-ischemic myocardial injury in setting of new HFrEF
Nonobstructive coronary artery disease
- He had very mild nonobstructive coronary artery disease on [facility] on 11/02/2025.
- Start ASA 81mg daily and Atorvastatin 10 mg daily
HTN:
- Stop home Amlodipine and Benazepril-HCTZ
- GDMT as above
Sleep apnea:
-stable in that he is compliant with bipap
Subjective: Shortness of breath is improved. He would like to go home.
Physical Exam
Vital Signs/Labs
Vital Signs
Temp Pulse Resp BP Pulse Ox
97.5 F 88 20 141/77 98
11/03/25 08:47 11/03/25 08:47 11/03/25 08:47 11/03/25 08:47 11/03/25 08:47
11/02/25 11/03/25 11/04/25
06:59 06:59 06:59
Actual Weight 244 lb 1 oz 242 lb 2 oz
11/03/25 07:22
11/03/25 07:22
PT 14.8 Sec (11.4-14.6) H 11/01/25 13:25
INR 1.15 11/01/25 13:25
Magnesium 1.8 mg/dl (1.6-2.3) 11/01/25 19:30
Triglycerides 121 mg/dl (10-149) 11/02/25 07:30
LDL Cholesterol, Calc 98 mg/dl 11/02/25 07:30
VLDL Cholesterol, Calc 24 mg/dl (0-30) 11/02/25 07:30
HDL Cholesterol 71 mg/dl 11/02/25 07:30
TSH 2.62 uIU/ml (0.47-4.68) 11/01/25 15:14
11/01/25
13:25
Ohx-C-Lxroddkhphb Pept 873
LAB Results
11/01/25 11/01/25 11/02/25
13:25 19:30 01:27
Troponin I 0.036 H* 0.039 H* 0.042 H*
11/02/25 11/02/25 11/03/25
06:42 07:30 07:22
Troponin I Cancelled 0.047 H* 0.042 H*
Physical Exam
Constitutional: No acute distress and Comfortable
Cardiovascular: Rhythm & rate is regular, Pedal edema is absent, S1S2 is normal and Murmur/rub/gallop absent
Respiratory: Respiratory effort normal and Crackles Present (mild, bibasilar, improved)
Neuro/Psych: AO x 3
Data Reviewed
-
Date of Service: November 03, 2025
Medical Decision Making: Reviewed Test Results, Test Interpretation and Review of Case with other Provider
EKG: Tracing Personally Visualized and interpreted
Echo: Report Reviewed by me
Labs: Labs Reviewed by me
[2025-11-03] MEDS: TOPROL XL PO (09:15)
[2025-11-03] MEDS: ALDACTONE 25 MG PO (09:24)
[2025-11-03] MEDS: DIOVAN 80 MG PO (09:24)
[2025-11-03] MEDS: TOPROL XL 50 MG PO (09:24)
[2025-11-03] MEDS: SENOKOT-S 1 TABLET PO (09:24)
[2025-11-03] MEDS: LOW STRENGTH ASPIRIN 81 MG PO (09:24)
[2025-11-03] MEDS: LASIX 20 MG IV (09:56)
--- NOTE | 2025-11-03 10:59 | CM ---
Patient will discharge home today
Met w/ patient bedside. IMM verbally reviewed, copy provided, copy on chart
No CM needs at this time
Plan: Home, no needs
[2025-11-03 11:25] VITALS: BP 105/60; PULSE 87; O2SAT 98
[2025-11-03 11:26] VITALS: BP 105/60; PULSE 86; O2SAT 97
--- NOTE | 2025-11-04 09:28 | W.HF.CON ---
Heart Failure
- LV Function
Left ventricular function study result: LV Ejection fraction </= 35%
Ejection Fraction Percentage: 25-30
- ARNI
Patient already on ARNI: No
Heart Failure ARNI Contraindication: Patient Refusal
- ACEI/ARB
Patient already on ACEI/ARB: Yes
- Beta Mireya
Patient already on Evidence Based Beta Mireya: Yes
- Mineralocorticord Receptor Antagonist
Patient already on MRA: Yes
- SGLT-2 Inhibitor
Patient already on SGLT-2 Inhibitor: No
Heart Failure SGLT-2 Inhibitor Contraindication: Patient Refusal
- NYHA CHF Classification
NYHA CHF Classification Level: Class III - Symptoms w/ min exertion, interferes w/ nml daily activity
- ACC/AHA Stage
ACC/AHA Stage: Stage C: Symptomatic Heart Failure
--- NOTE | 2025-11-04 11:52 | PN.CDI ---
CDI
- -
CDI:
Physician Documentation Request
Admit Date: 11/01/25 17:16
Dear Doctor,
Patient admitted for heart failure.
11/03 Hospitalist PN: 'Type II NSTEMI...Heart Cath 11/03/2025: 1: Very mild nonobstructive coronary artery disease. This is clearly a nonischemic cardiomyopathy.'
11/03 Cardiology PN: 'Abnormal troponin: -suspect acute, non-ischemic myocardial injury in setting of new HFrEF'
Please clarify the following regarding the documented troponin elevation:
Nonischemic myocardial injury
Type 2 DE
NSTEMI
Other
Use of terms such as suspected, likely, concern for, or probable (associated with a specific diagnosis that is being evaluated, monitored, or treated as if it exists) are acceptable and can be coded in the inpatient setting, when documented at the
time of discharge.
Thank you,
Piedad Michelle RN, BSN
CDI Specialist
Available via [place] text
Please use your independent medical judgment in providing your response.
--- NOTE | 2025-11-05 19:05 | W.DCSUMMARY ---
Documented by User: Sushma Mcclure MD, Resident 11/05/25 20:30
Discharge Summary
Discharge Data
Date of Admission: 11/01/25
Date of Discharge: 11/03/25
-
Pending Results: No
Hospital Course
Discharging Physician:
Irving Mccarty
Sushma Mcclure
Disposition:
Home
Primary Care Physician:
Aamir Avalos
Principal Discharge Diagnosis:
Acute CHF with estimated left ventricular ejection fraction is 25 to 30%
Mild aortic regurgitation
mild mitral regurgitation
Mild nonobstructive cardiomyopathy
Multifocal atrial tachycardia
Chronic Discharge Disease:
Obesity
Hypertension
Sleep apnea on Bipap
Hospital course:
75-year-old obese male presented to the emergency department for evaluation of dyspnea on exertion that has been progressed over the past week. 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
decreased exercise tolerance. He stated he has chronic leg swelling as he has been taking amlodipine 10mg for HTN and that cause leg swelling.
At ED: EKG nonischemic tachycardia, sinus rhythm with PACs and PVCs , HR 104-120. Labs show elevated BNP 873 and minimal elevation of troponin, suspected to be from ischemic demand rather than ACS in the absence of any present chest pain. Chest
x-ray confirms signs of pulmonary edema. At that time concerned for new onset CHF. Admitted for acute CHF evaluation and treatment. Cardiology consulted and received total of 40 mg Lasix IV at arrival.
CT of the chest was done and ruled out PE. Echocardiogram showed LVEF 25-30%. Started on GDMT; metoprolol XL 25 mg daily, spironolactone 25 mg daily and Valsartan 80 mg daily, SGLT2 inhibitor has not been started (due to cost prohibitive). Elevated
troponin suspect acute, non-ischemic myocardial injury in setting of new HFrEF. It was unclear the etiology of acute heart failure likely related to ischemic demand in the setting of tachycardia or ischemic CAD so heart catheterization was done and
LHC showed very mild nonobstructive coronary artery disease and likely the acute CHF was due to nonischemic cardiomyopathy/very mild nonobstructive coronary artery disease and started on ASA 81mg daily. His LDL 98 (goal <70) so he started on
Atorvastatin 10 mg daily and discontinued home Amlodipine and Benazepril-HCTZ.
He preferred to follow up as an out patient with email deployment specialist for possible ICD and he preferred Dr. Gilson Spangler. He lost 3.5 pounds since the admission and has improved clinically and discharged in stable condition and discharged on lasix 20mg
tablets daily as well as above meds.
During hospitalization all his electrolytes have been repleted accordingly.
Important Imaging:
Echocardiogram 11/02/2025
1.Dilated left ventricle with severely reduced left ventricular systolic function. There is global hypokinesis with regional variations. Estimated left ventricular ejection fraction is 25 to 30% by visual estimation. Stage I diastolic dysfunction,
suggestive of abnormal relaxation.
2. Normal right ventricular size and systolic function.
3. Mild aortic regurgitation which is eccentric with thickened aortic valve leaflets.
4. Thickened mitral valve leaflets with mild mitral regurgitation.
5. No pericardial effusion.
6. No prior echocardiogram available for comparison.
CT chest PE study 11/01/2025
No acute disease of the chest. No pulmonary embolus.
Chest X ray 11/01/2025
Mild interstitial opacification with minimal basilar airspace opacities. This likely represents mild edema, however pneumonia cannot be excluded.
RIGHT AND LEFT HEART CATHETERIZATION 11/02/2025
1:Very mild nonobstructive coronary artery disease. This is clearly a nonischemic cardiomyopathy.
2: Fairly well compensated filling pressures with moderately elevated pulmonary pressures and more markedly elevated LVEDP.
Discharge Plan
-
Patient Disposition: Home (Routine Discharge)
Discharge Diagnosis/Procedures: Acute CHF with estimated left ventricular ejection fraction is 25 to 30%
Mild aortic regurgitation
mild mitral regurgitation
Mild nonobstructive cardiomyopathy
Multifocal atrial tachycardia
Condition: Good
Diet: 2 Gram Sodium
Activity: As tolerated
Driving Restrictions: As prior to admission
Bathing Restrictions: OK to Shower
Blood Work: BMP and magnesium level in 5 to 7 days
Others Tests: Repeat echocardiogram in 3 to 6 months with cardiology
Specialty Instructions: Weigh Daily- Call MD for wt gain/loss 3 lbs overnight/5 lbs in 1 week
Activity Restrictions/Additional Instructions:
Weigh yourself every morning. Use the same scale, in the same spot. Do this after you use the bathroom, but before you eat or drink anything. Wear the same type of clothing. Do not wear shoes. Record your weight each day in a journal or on a blank
calendar. Swelling and weight gain are signs of fluid retention. If you gain 2-3 pounds in 1 day, or 5 pounds or more in 1 week, call your doctor right away.
Instructions: *PCP/Other Patrol Judge Heart Failure Instructions
Referrals:
Parminder Spangler MD [Affiliate, Cardiology] - 11/13/25 9:00 am
Aamir Avalos MD [Family Provider, Internal Medicine] - in less than 1 week
Parminder Macdonald MD [Active, Cardiology] - 11/04/25 9:00 am
Additional Discharge Medication Instructions: Take aspirin 81 mg tablet daily with food
Take atorvastatin 10 mg daily at bedtime
Take Furosemide 20mg tablet daily
Take Metoprolol succinate 50mg tablet extended release daily
Take spironolactone 25 mg tablet daily
Take valsartan 80 mg tablet daily
Please follow up with your email deployment specialist for reassessment for ICD after three months of starting above GDMT medications
Prescriptions:
New
metoprolol succinate 50 mg Tablet Extended Release 24 Hr
50 mg PO DAILY 30 Days Qty: 30 0RF
aspirin 81 mg Tablet,Chewable
81 mg PO DAILY 30 Days Qty: 30 0RF
atorvastatin 10 mg Tablet
10 mg PO QPM 30 Days Qty: 30 0RF
valsartan 80 mg Tablet
80 mg PO DAILY 30 Days Qty: 30 0RF
spironolactone 25 mg Tablet
25 mg PO DAILY 30 Days Qty: 30 0RF
furosemide 20 mg Tablet
20 mg PO DAILY 30 Days Qty: 30 0RF
Continued
lutein 20 MG tablet
20 mg PO DAILY
docusate sodium 100 MG capsule
100 mg PO BID
multivitamin Tablet
1 tab PO DAILY
Discontinued
amlodipine [Norvasc] 10 MG tablet
10 mg PO DAILY Qty: 0 0RF
Rx Instructions:
Hold if systolic blood pressure <130 while on Tramadol.
benazepril-hydrochlorothiazide 20-25 mg Tablet
1 tab PO BID
Discharge Orders:
Discharge Patient (As Directed); Ordered 11/03/25
Ordered By: Sushma Mcclure
Discharge Date and Time
Discharge Date/Time: 11/03/25 11:50
Print Language: MARSHALLESE

Documented by User: Irving Mccarty DO 11/06/25 08:01
Discharge Summary
Discharge Data
Date of Admission: 11/01/25
Date of Discharge: 11/03/25
Total time spent discharging patient (in min): 34
Discharge Plan
-
Patient Disposition: Home (Routine Discharge)
Discharge Diagnosis/Procedures: Acute CHF with estimated left ventricular ejection fraction is 25 to 30%
Mild aortic regurgitation
mild mitral regurgitation
Mild nonobstructive cardiomyopathy
Multifocal atrial tachycardia
Condition: Good
Diet: 2 Gram Sodium
Activity: As tolerated
Driving Restrictions: As prior to admission
Bathing Restrictions: OK to Shower
Blood Work: BMP and magnesium level in 5 to 7 days
Others Tests: Repeat echocardiogram in 3 to 6 months with cardiology
Specialty Instructions: Weigh Daily- Call MD for wt gain/loss 3 lbs overnight/5 lbs in 1 week
Activity Restrictions/Additional Instructions:
Weigh yourself every morning. Use the same scale, in the same spot. Do this after you use the bathroom, but before you eat or drink anything. Wear the same type of clothing. Do not wear shoes. Record your weight each day in a journal or on a blank
calendar. Swelling and weight gain are signs of fluid retention. If you gain 2-3 pounds in 1 day, or 5 pounds or more in 1 week, call your doctor right away.
Instructions: *PCP/Other Patrol Judge Heart Failure Instructions
Referrals:
Parminder Spangler MD [Affiliate, Cardiology] - 11/13/25 9:00 am
Aamir Avalos MD [Family Provider, Internal Medicine] - in less than 1 week
Parminder Macdonald MD [Active, Cardiology] - 11/04/25 9:00 am
Additional Discharge Medication Instructions: Take aspirin 81 mg tablet daily with food
Take atorvastatin 10 mg daily at bedtime
Take Furosemide 20mg tablet daily
Take Metoprolol succinate 50mg tablet extended release daily
Take spironolactone 25 mg tablet daily
Take valsartan 80 mg tablet daily
Please follow up with your email deployment specialist for reassessment for ICD after three months of starting above GDMT medications
Prescriptions:
New
metoprolol succinate 50 mg Tablet Extended Release 24 Hr
50 mg PO DAILY 30 Days Qty: 30 0RF
aspirin 81 mg Tablet,Chewable
81 mg PO DAILY 30 Days Qty: 30 0RF
atorvastatin 10 mg Tablet
10 mg PO QPM 30 Days Qty: 30 0RF
valsartan 80 mg Tablet
80 mg PO DAILY 30 Days Qty: 30 0RF
spironolactone 25 mg Tablet
25 mg PO DAILY 30 Days Qty: 30 0RF
furosemide 20 mg Tablet
20 mg PO DAILY 30 Days Qty: 30 0RF
Continued
lutein 20 MG tablet
20 mg PO DAILY
docusate sodium 100 MG capsule
100 mg PO BID
multivitamin Tablet
1 tab PO DAILY
Discontinued
amlodipine [Norvasc] 10 MG tablet
10 mg PO DAILY Qty: 0 0RF
Rx Instructions:
Hold if systolic blood pressure <130 while on Tramadol.
benazepril-hydrochlorothiazide 20-25 mg Tablet
1 tab PO BID
Discharge Orders:
Discharge Patient (As Directed); Ordered 11/03/25
Ordered By: Sushma Mcclure
Discharge Date and Time
Discharge Date/Time: 11/03/25 11:50
Print Language: MARSHALLESE
== END 2025-11-03 11:50 | disposition home or self-care (01) | DRG 286 ==
LOC: 4 EAST ACU 17:16
PROVIDERS: Emergency Medicine; Internal Medicine Interventional Cardiology; Nurse Practitioner; Physician Assistant; Specialist Research Data Abstracter/Coder; ADMITTING PHYSICIAN Internal Medicine; ATTENDING PHYSICIAN Internal Medicine; EMERGENCY PHYSICIAN Student in an Organized Health Care Education/Training Program; FAMILY PHYSICIAN Internal Medicine; OTHER PHYSICIAN Student in an Organized Health Care Education/Training Program
PROC: B2151ZZ Fluoroscopy of Left Heart using Low Osmolar Contrast (ICD-10-PCS; 2025-11-02)
PROC: 4A023N8 Measurement of Cardiac Sampling and Pressure, Bilateral, Percutaneous Approach (ICD-10-PCS; 2025-11-02)
PROC: B2111ZZ Fluoroscopy of Multiple Coronary Arteries using Low Osmolar Contrast (ICD-10-PCS; 2025-11-02)
DX: I11.0 Hypertensive heart disease with heart failure (principal); I50.21 Acute systolic (congestive) heart failure; I47.19 Other supraventricular tachycardia; E66.9 Obesity, unspecified; I42.8 Other cardiomyopathies; I25.10 Atherosclerotic heart disease of native coronary artery without angina pectoris; I5A Non-ischemic myocardial injury (non-traumatic); Z66 Do not resuscitate; G47.33 Obstructive sleep apnea (adult) (pediatric); Z79.899 Other long term (current) drug therapy; Z82.49 Family history of ischemic heart disease and other diseases of the circulatory system; Z83.3 Family history of diabetes mellitus; Z96.642 Presence of left artificial hip joint; Z96.653 Presence of artificial knee joint, bilateral
CPT/HCPCS: 71046; 71275; 80048; 80053; 80061; 83036; 83735; 83880; 84132; 84443; 84484; 85025; 85027; 85379; 85610; 93005; 93306; 93460; 97162; 97165; 97535; 99285; C1760; C1769; C1894; Q9950; Q9967

== ENCOUNTER 2025-11-05 10:55 | Inpatient (IN) | payer OTHER, SELFPAY ==
[2025-11-05] VITALS (12 sets, daily range): BP systolic 116–141; BP diastolic 62–84; PULSE 2; BMI 35.7; BMI 34.8
[2025-11-05 07:19] LABS: Hematocrit 46.8 % (39.0-52.0); Hemoglobin 15.8 g/dL (13.0-18.0); Mean Corp Hgb Conc. 33.8 g/dL (33.0-37.0); Mean Corpuscular Volume 85.9 fL (80.0-94.0); Nucleated Red Blood Cells % 0 % (-); Platelet Count 200 10^3/uL (130-400); Red Cell Dist. Width 14.2 % (11.5-14.5)
[2025-11-05 08:31] LABS: ALT (SGPT) 58 U/L (0-50); AST (SGOT) 49 U/L (17-59); Albumin 4.1 g/dl (3.5-5.0); Alkaline Phosphatase 71 U/L (38-126); Blood Urea Nitrogen 25 mg/dl (9-20); Calcium 9.1 mg/dl (8.4-10.2); Carbon Dioxide 27 mmol/L (22-30); Chloride 105 mmol/L (98-107); Estimated Creatinine Clearance 111 ml/min; Glucose 128 mg/dl (70-99); Potassium 4.0 mmol/L (3.5-5.1); Sodium 138 mmol/L (135-145); Total Protein 6.9 g/dl (6.3-8.2); eGFR > 60.00
--- NOTE | 2025-11-05 08:38 | ED.GENMED ---
History of Present Illness
General
Chief Complaint: Breathing Problem
Source: patient, records and spouse
Exam Limitations: none
Time Seen by Provider: 11/05/25 08:22
History of Present Illness
History of Present Illness:
75-year-old male recently diagnosed with congestive heart failure an echo and a cardiac cath, discharged 2 days ago had a 4 pound weight gain developed cough shortness of breath no sputum production no fever no chest pain given oxygen nitroglycerin
now feeling better, protohistorian is Dr. Spangler cath was from Dr. Macdonald
Past History
Past History
ED Past Medical History: CHF, HTN and Other (Sleep apnea); Negative Arrthythmia or CAD
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
Social History
Tobacco: Non-smoker
Alcohol: None
Drug: None
Personal:
Living: with family
Employment: Retired
Review of Systems
Review of Systems
All Other Systems: Not applicable
Constitutional: Reports weight gain and fatigue; Denies fever
Respiratory: Reports cough and trouble breathing
Cardiac: Denies chest pain
ABD/GI: Reports no symptoms
: Reports no symptoms
Musculoskeletal: Reports no symptoms
Phy Exam
Physical Exam
Physical Exam:
Physical Exam
General: 75 male mild to moderate respiratory distress hypoxia noted
Neck: No jaw
Heart: s1/s2 regular rate and rhythm, no murmur. equal radial pulses.
Lungs: Bibasilar crackles
Abdomen: Nontender
Neuro: alert and oriented. no focal neurological deficits
Skin: no rash
Psychiatric: well kept. interactive and cooperative
Extremities: Edema 1
Scores
Heart Failure Risk
Heart Failure Risk Score: Yes
History of Stroke or TIA: No
History of intubation for respiratory distress: No
Heart rate on ED arrival >/= 110: No
SaO2 <90% on arrival on room air: Yes
HR >/=110 during 3min walk test (or too ill to perform test): Yes
ECG has acute ischemic changes: No
Urea >/=12mmol/L (BUN 33.6mg/dL): No
Serum CO2>/=35mmol/L: No
Troponin I or T elevated to ID Level (0.4mg/dL): No
NT-proBNP >/=5,000ng/L (5,000pg/ml): No
HF Risk Score: 3
Admission Status: HIGH RISK 15.9% Consider SNF treatment or admission to hospital
Course
Orders/Labs/Results
Orders:
Orders
11/05/25
Electrocardiogram (*1) Stat
Comment: ALREADY DONE
11/05/25 07:11
Complete Blood Count/With Diff Urgent
11/05/25 08:03
Comprehensive Metabolic Panel Urgent
NT-proBNP Urgent
Troponin I Urgent
11/05/25 08:33
CR Chest Portable - 1 View Urgent
Comment:
Reason For Exam: sob
Reason Study Needs to be Portable: Patient Unstable
11/05/25 08:42
Influenza A+B Rapid Molecular Urgent
CHAZ Source: Nasal Swab
Specimen Description:
11/05/25 09:19
Furosemide [Lasix] 60 mg IV NOW STA
11/05/25 10:27
Admit/Transfer Patient As Directed
Co-Sign Provider:
Level of Care: Inpatient admission
Assign to:: Medical/Surgical
Physician / Group: Hospitalist
Diagnosis: Acute CHF
Reason for Hospitalization: Acute CHF
Expected length of stay greater than two midnights?: Yes
ELOS- Estimated Length of Stay in days: 3
I certify the patient meets the requirements for IP care: Yes
PRN Pain Medication Management As Directed
May give lesser potent ordered pain med per pt: Yes
preference::
Protocol:: Medication orders for pain may be administered in a
manner that supports deferring to patient preference
when the pt is:
- Requesting an ordered lesser potent pain medication.
Least to most potent pain medications are defined
as: acetaminophen < NSAID < tramadol < opioids
(morphine, oxycodone, hydromorphone).
- Requesting a lesser dose of the same medication IF
ORDERED.
- Requesting a less intrusive route of administration
if both routes are prescribed by the provider (PO <
IV).
11/05/25 10:30
Code Status As Directed
Resuscitation Status: Full Code
11/05/25 12:18
Bisacodyl [Dulcolax] 10 mg RECTAL [id number] PRN
Docusate W/Senna [Senokot-S] 1 tablet PO BIDPRN PRN
Polyethylene Glycol Powder [Miralax] 17 grams PO DAILYPRN PRN
11/05/25 12:18
Activity As Directed
Activity Level: As Tolerated
Vital Signs As Directed
Frequency: Per unit guidelines
DX Deep Vein Thrombosis Video Routine
11/05/25 18:00
Atorvastatin [Lipitor] 10 mg PO QPM
Enoxaparin Sodium [Lovenox] 40 mg SC QPM
11/06/25 08:00
Aspirin Chewable [Low Strength Aspirin] 81 mg PO DAILY
Metoprolol Xl [Toprol Xl] 50 mg PO DAILY
Spironolactone [Aldactone] 25 mg PO DAILY
Valsartan [Diovan] 80 mg PO DAILY
Abnormal Lab Results
11/05/25 11/05/25
07:11 08:03
Immature Gran % 0.6 H %
(0-0.5)
BUN 25 H mg/dl
(9-20)
Glucose 128 H mg/dl
(70-99)
Total Bilirubin 1.8 H mg/dl
(0.2-1.3)
ALT 58 H U/L
(0-50)
11/05/25 07:11
11/05/25 08:03
Vital Signs
Initial and Last Documented VS:
Initial Vital Signs
Temp Pulse Resp BP Pulse Ox
97.9 F 101 24 141/84 86
11/05/25 06:56 11/05/25 06:56 11/05/25 06:56 11/05/25 06:56 11/05/25 06:56
Last Documented Vital Signs
Temp Pulse Resp BP Pulse Ox
98.2 F 92 19 126/67 96
11/05/25 12:26 11/05/25 12:26 11/05/25 12:26 11/05/25 12:26 11/05/25 12:26
MDM/Problems Addressed
Differential Diagnosis Includes:
Heart failure pneumonia influenza less likely PE
MDM/Problems Addressed:
Shortness of breath hypoxia
Chronic conditions affecting care: Cardiomyopathy
Acute Exacerbation and/or Progression of Chronic Illness: Cardiomyopathy
*Pulse Oximetry
SaO2: 98
Nasal Cannula flow liters per minute: 4
Oxygen Mode of Delivery: Room air
Patient hypoxic: yes
*Critical Care Note
Total Time (30-74mins, 75-104mins- exclusive of procedures): 30
ED Attending Note
-
Portions of this chart may have been created with voice recognition software.� Occasional wrong word or��sound alike� substitutions may have occurred due to the inherent limitations of voice recognition software.
Discharge Plan
Departure
Patient Disposition: Admit
Date of Disposition: 11/05/25
Time of Disposition: 09:20
Admit to: Telemetry
Presentation/result/management discussed w/ accepting MD/DO: Hospitalist
Patient with high blood pressure during this ER visit?: Yes
Condition: Fair
Discharge Problem:
Acute CHF
Interventions
Interventions:
*General Assessment Last Done: 11/05/25 06:56
*Neglect/Abuse Screening Last Done: 11/05/25 06:56
*ED COVID-19 Vaccine History Last Done: 11/05/25 12:49
*ED Influenza Vaccine History Last Done: 11/05/25 06:56
[facility] Fall Risk Assessment Tool Last Done: 11/05/25 07:09
*Risk Screen - Suicide (C-SSRS) Last Done: 11/05/25 06:56
*Nursing Disposition Last Done: 11/05/25 12:13
ED- Cardiac Assessment Last Done: 11/05/25 07:07
ED- Pulmonary Assessment Last Done: 11/05/25 07:07
Discharge Date and Time
Discharge Date/Time: 11/05/25 12:13
[2025-11-05 08:43] LABS: Troponin I 0.032 ng/ml
[2025-11-05] MEDS: LASIX 60 MG IV (09:22)
--- NOTE | 2025-11-05 12:14 | W.PN.UPDATE ---
Update Note
Progress Note Update
75-year-old male with newly diagnosed HFrEF due to nonischemic cardiomyopathy with LVEF near 30%, multifocal atrial tachycardia, primary hypertension, SWATI on nightly BiPAP who is presenting to the ED today with a complaint of shortness of breath.
Patient was recently discharged on 11/03 after hospitalization for newly diagnosed NICM, had [facility] with nonobstructive CAD at the time. Was titrated onto GDMT and received IV diuresis before being transition to Lasix 20 mg at the time of discharge.
States that over the last 2 days he has gained 4 pounds and developed cough with shortness of breath. Denies chest pain, dyspnea, palpitations, fevers or chills, sputum production. Upon arrival AFVSS, labs unremarkable. BNP 568, troponin
negative. CXR demonstrating signs of pulmonary congestion bilaterally on prelim read. ECG without ischemic findings, showed NSR with occasional PVCs. In the ED was given IV Lasix 60 mg and placed onto 4 L of supplemental oxygen via NC. Upon
speaking with the patient he states that after discharge he did have a hamburger, some bologna, cheese, clam chowder. Denies any other high sodium foods including chips and [place] fries.
AAO x 4, NAD, obese. Irregular rhythm, no murmurs/gallops/rubs, normal S1 and 2. Bibasilar rales, nonlabored. Abdomen benign. 1+ BLLE edema, no JVD, palpable pulses, skin warm distally. No FND or CN deficits
#Acute on chronic HFrEF due to NICM. EF 30% on most recent echo. Unclear etiology to his heart failure, possibly rate mediated as he has had frequent PVCs and MAT on recent hospital stay. Current GDMT of metoprolol XL, spironolactone, valsartan
(SGLT2i was unaffordable). Discharged on Lasix 20 mg, weight increased 4 pounds per history though BNP near 570. Started on IV Lasix in the ED, will continue with IV Lasix at 40 mg once daily. Continue current GDMT. Trend I's and O's, weights,
BMP. CM for bruno checking of SGLT2i
#Multifocal atrial tachycardia, PVCs. ECG here without MAT at this time. Remains on home beta-louisa. Monitor on telemetry
Diet -- Low sodium, patient and family educated on importance of monitoring sodium intake
DVT -- SQ Lovenox
Code -- Full
I have personally evaluated the patient at the bedside in the ED. I will be admitting Dionicio De La O to telemetry. He is at high risk for worsening morbidity due to decompensated heart failure. He will require intensive monitoring of his renal
function and electrolytes, as well as readjustment of his diuretic regimen and GDMT. I discussed this case with the ED attending and personalization specialist. I have reviewed the case with the resident and agree with all documentation unless otherwise
specified.
Please see formal resident H&P for more detail once available
--- NOTE | 2025-11-05 14:22 | HPS.HSE ---
Family Physician
-
Family Physician: Aamir Avalos
Chief Complaint
-
Shortness of breath, wheezing and weight gain
History of Present Illness
75-year-old male with newly diagnosed with HFrEF due to nonischemic cardiomyopathy with LVEF 25-30%, multifocal atrial tachycardia, primary hypertension, SWATI on nightly BiPAP who is presenting to the ED today with a complaint of shortness of breath.
Patient was recently discharged on 11/03 after hospitalization for newly diagnosed NICM, had [facility] with nonobstructive CAD at the time. Was titrated onto GDMT and received IV diuresis before being transition to Lasix 20 mg at the time of discharge.
States that over the last 2 days he has gained 4 pounds and developed cough with shortness of breath.
Denies chest pain, dyspnea, palpitations, fevers or chills, sputum production. Upon arrival AFVSS, labs unremarkable. BNP 568, troponin negative. CXR demonstrating signs of pulmonary congestion bilaterally on prelim read. ECG without ischemic
findings, showed NSR with occasional PVCs. In the ED was given IV Lasix 60 mg and placed onto 4 L of supplemental oxygen via NC.
Medical History
Past Medical History
Past Medical History: Reports HTN and Other (SWATI on nightly bipap, HFrEF)
Past Surgical History: Reports Other (Orthopedic (Bilateral knee replacement and left hip replacement))
Social History
Tobacco: Non-smoker
Alcohol: None
Drug: None
Personal:
Living: With Family
Employment: Employed
Family History
Family History: Early CAD (Father), Diabetes, Hypertension and Other (A.fib , brother)
Allergies / Home Medications
Allergies reflects when Allergies were last updated in [facility].
Home Medications with original date entered in [facility]
Allergies
Allergy/AdvReac Type Severity Reaction Status Date / Time
No Known Allergies Allergy Verified 11/01/25 10:02
Home Medications
lutein 20 mg tablet 20 mg PO DAILY Supplement 11/01/16
docusate sodium 100 mg capsule 100 mg PO BID STOOL SOFTENER 10/22/20
multivitamin 1 tab PO DAILY Supplement 07/06/23
aspirin 81 mg chewable tablet 81 mg PO DAILY Non obstructive coronary artery disease 30 days #30 tabs 11/03/25
atorvastatin 10 mg tablet 10 mg PO QPM 30 days #30 tabs 11/03/25
furosemide 20 mg tablet 20 mg PO DAILY 30 days #30 tabs 11/03/25
metoprolol succinate 50 mg tablet,extended release 24 hr 50 mg PO DAILY 30 days #30 tabs 11/03/25
spironolactone 25 mg tablet 25 mg PO DAILY 30 days #30 tabs 11/03/25
valsartan 80 mg tablet 80 mg PO DAILY 30 days #30 tabs 11/03/25
Allergy/Medication List:
Allergies
Allergy/AdvReac Type Severity Reaction Status Date / Time
No Known Allergies Allergy Verified 11/01/25 10:02
Home Medications
lutein 20 mg tablet 20 mg PO DAILY Supplement 11/01/16
docusate sodium 100 mg capsule 100 mg PO BID STOOL SOFTENER 10/22/20
multivitamin 1 tab PO DAILY Supplement 07/06/23
aspirin 81 mg chewable tablet 81 mg PO DAILY Non obstructive coronary artery disease 30 days #30 tabs 11/03/25
atorvastatin 10 mg tablet 10 mg PO QPM 30 days #30 tabs 11/03/25
furosemide 20 mg tablet 20 mg PO DAILY 30 days #30 tabs 11/03/25
metoprolol succinate 50 mg tablet,extended release 24 hr 50 mg PO DAILY 30 days #30 tabs 11/03/25
spironolactone 25 mg tablet 25 mg PO DAILY 30 days #30 tabs 11/03/25
valsartan 80 mg tablet 80 mg PO DAILY 30 days #30 tabs 11/03/25
Review of Systems
-
History Source: Patient
Constitutional: Reports Weight Gain (4 pounds in one day)
Respiratory: Reports Trouble Breathing and Other (wheezing)
Cardiac: Reports No Symptoms
Abdomen/GI: Reports No Symptoms
: Reports No Symptoms
Musculoskeletal: Reports Edema (Bilateral leg edema)
Neurological: Reports No Symptoms
Physical Exam
Vital Signs
Vital Signs
Temp Pulse Resp BP Pulse Ox
98.2 F 92 19 126/67 96
11/05/25 12:26 11/05/25 12:11/05/25 12:26 11/05/25 12:11/05/25 12:
Physical Exam
General: Well Developed, Well Nourished and No Apparent Distress
HEENT: NormoCephalic, Anicteric and Moist mucous membranes
Respiratory: Crackles (bilateral)
Cardiac: S1/S2 and Irregular Rhythm
GI: Soft, Non Tender and Non Distended
Musculoskeletal: Edema, Left Lower Extremity and Edema, Right Lower Extremity
Neuro: Awake, Alert, Oriented and AO x 3
Psych: Calm
Laboratory Results
-
11/05/25 07:11
11/05/25 08:03
Laboratory Results
Total Bilirubin 1.8 mg/dl (0.2-1.3) H 11/05/25 08:03
AST 49 U/L (17-59) 11/05/25 08:03
ALT 58 U/L (0-50) H 11/05/25 08:03
Alkaline Phosphatase 71 U/L (38-126) 11/05/25 08:03
Troponin I 0.032 ng/ml 11/05/25 08:03
Impression/Plan
-
IMPRESSION:
75-year-old male with newly diagnosed HFrEF due to nonischemic cardiomyopathy with LVEF near 30%, multifocal atrial tachycardia, primary hypertension, SWATI on nightly BiPAP who is presenting to the ED today with a complaint of shortness of breath.
Patient was recently discharged on 11/03 after hospitalization for newly diagnosed NICM, had [facility] with nonobstructive CAD at the time. Was titrated onto GDMT and received IV diuresis before being transition to Lasix 20 mg at the time of discharge.
States that over the last 2 days he has gained 4 pounds and developed cough with shortness of breath. Denies chest pain, dyspnea, palpitations, fevers or chills, sputum production. Upon arrival AFVSS, labs unremarkable. BNP 568, troponin
negative. CXR demonstrating signs of pulmonary congestion bilaterally on prelim read. ECG without ischemic findings, showed NSR with occasional PVCs. In the ED was given IV Lasix 60 mg and placed onto 4 L of supplemental oxygen via NC.
PLAN:
#Acute on chronic HFrEF due to non ischemic cardiomyopathy
recent echo at last admission EF 30%
unclear etiology to his heart failure, possibly rate mediated as he has had frequent PVCs and MAT on recent hospital stay
Current GDMT of metoprolol XL, spironolactone, valsartan (SGLT2i was unaffordable)
Discharged on Lasix 20 mg, weight increased 4 pounds per history though BNP near 570 , Started on IV Lasix in the ED, will continue with IV Lasix at 40 mg once daily
Continue current GDMT
Trend I's and O's, weights, BMP.
CM for bruno checking of SGLT2i
#Multifocal atrial tachycardia, PVCs
ECG here without MAT at this time. Remains on home beta-louisa
Monitor on telemetry
Diet -- Low sodium, patient and family educated on importance of monitoring sodium intake
DVT -- SQ Lovenox
Code -- Full
[2025-11-05] MEDS: SENOKOT-S 1 TABLET PO (15:12)
[2025-11-05] MEDS: MIRALAX 17 GRAMS PO (15:13)
[2025-11-05] MEDS: LIPITOR 10 MG PO (17:04)
[2025-11-05] MEDS: LOVENOX 40 MG SC (17:04)
--- NOTE | 2025-11-05 17:17 | PTCARENOTE ---
The patient received from the ER, pt had mechanical fall two days prior at home, [place] wire [place] farm. PT is on diuretics IV and was found to be high fall risk. he is steady on feet and indepenent at baseline. PT was placed on high fall risk,
yelloiw sign on door, yellow band on and return vist sign on, pt makes no attempts oob without staff. pt was educated about our fall precautions protocol. the patient is aware he was identified as a high fall risk. the patient made a verbal
agreement to call for nurse each time he wants to get oob or move. So far he has appropriately called. family has been at bedside continuouslyly. hourly rounds maintained and clutter removed from room and room is free, pt is currently sitting oob
into chair with call sol in had
[2025-11-06] VITALS (7 sets, daily range): BP systolic 107–147; BP diastolic 20–74; PULSE 2–88; BMI 34.9
[2025-11-06 06:03] LABS: Hematocrit 45.2 % (39.0-52.0); Hemoglobin 15.1 g/dL (13.0-18.0); Mean Corp Hgb Conc. 33.4 g/dL (33.0-37.0); Mean Corpuscular Volume 86.8 fL (80.0-94.0); Platelet Count 197 10^3/uL (130-400); Red Cell Dist. Width 13.8 % (11.5-14.5)
[2025-11-06 06:31] LABS: ALT (SGPT) 54 U/L (0-50); AST (SGOT) 37 U/L (17-59); Albumin 4.2 g/dl (3.5-5.0); Alkaline Phosphatase 74 U/L (38-126); Blood Urea Nitrogen 22 mg/dl (9-20); Calcium 9.1 mg/dl (8.4-10.2); Carbon Dioxide 26 mmol/L (22-30); Chloride 103 mmol/L (98-107); Estimated Creatinine Clearance 96 ml/min; Glucose 103 mg/dl (70-99); Potassium 3.9 mmol/L (3.5-5.1); Sodium 136 mmol/L (135-145); Total Protein 6.9 g/dl (6.3-8.2); eGFR > 60.00
--- NOTE | 2025-11-06 07:12 | W.PN.HOSP.TC ---
Today's Communication/Plan
-
Continue 20mg lasix BID
per cardiology planning on discharge to increase dose of Lasix to p.o. 40 mg daily
plan for change IV lasix to PO tomorrow before discharge
Continue metoprolol, valsartan, and spironolactone.
started today on Farxiga 10mg PO
Continue aspirin and atorvastatin
Assessment / Plan
Assessment / Plan
75-year-old male with newly diagnosed HFrEF due to nonischemic cardiomyopathy with LVEF near 30%, multifocal atrial tachycardia, primary hypertension, SWATI on nightly BiPAP who is presenting to the ED today with a complaint of shortness of breath.
Patient was recently discharged on 11/03 after hospitalization for newly diagnosed NICM, had [facility] with nonobstructive CAD at the time. Was titrated onto GDMT and received IV diuresis before being transition to Lasix 20 mg at the time of discharge.
States that over the last 2 days he has gained 4 pounds and developed cough with shortness of breath. Denies chest pain, dyspnea, palpitations, fevers or chills, sputum production. Upon arrival AFVSS, labs unremarkable. BNP 568, troponin
negative. CXR demonstrating signs of pulmonary congestion bilaterally on prelim read. ECG without ischemic findings, showed NSR with occasional PVCs. In the ED was given IV Lasix 60 mg and placed onto 4 L of supplemental oxygen via NC. Upon
speaking with the patient he states that after discharge he did have a hamburger, some bologna, cheese, clam chowder. Denies any other high sodium foods including chips and Irish fries.
AAO x 4, NAD, obese. Irregular rhythm, no murmurs/gallops/rubs, normal S1 and 2. Bibasilar rales, nonlabored. Abdomen benign. 1+ BLLE edema, no JVD, palpable pulses, skin warm distally. No FND or CN deficits
Upon arrival AFVSS, labs unremarkable. BNP 568, troponin negative. CXR demonstrating signs of pulmonary congestion bilaterally on prelim read. ECG without ischemic findings, showed NSR with occasional PVCs. In the ED was given IV Lasix 60 mg and
placed onto 4 L of supplemental oxygen via NC. troponin negative
PLAN:
#Acute on chronic HFrEF due to non ischemic cardiomyopathy
recent echo at last admission EF 30%
unclear etiology to his heart failure, possibly rate mediated as he has had frequent PVCs and MAT on recent hospital stay
Current GDMT of metoprolol XL, spironolactone, valsartan (SGLT2i was unaffordable)
Discharged on Lasix 20 mg, weight increased 4 pounds per history though BNP near 570 , Started on IV Lasix in the ED, will continue with IV Lasix at 40 mg once daily
Continue current GDMT
Trend I's and O's, weights, BMP.
started today on Farxiga 10mg PO
#Multifocal atrial tachycardia, PVCs
ECG here without MAT at this time. Remains on home beta-louisa
Monitor on telemetry
Diet -- Low sodium, patient and family educated on importance of monitoring sodium intake
DVT -- SQ Lovenox
Code -- Full
Anticipated Discharge: Within 24 hours
Subjective/Interval History
-
Date of Service: November 06, 2025
No overnight event. His SOB improved. Denied chest pain, palpitation.
Objective Data
-
Labs:
Laboratory Results
11/06/25
05:11
WBC 8.4
Hgb 15.1
Hct 45.2
Plt Count 197
Sodium 136
Potassium 3.9
Chloride 103
Carbon Dioxide 26
BUN 22 H
Creatinine 0.8
Glucose 103 H
Calcium 9.1
Total Bilirubin 2.5 H
AST 37
ALT 54 H
Alkaline Phosphatase 74
Vital Signs:
Vital Signs
Temp Pulse Resp BP Pulse Ox
97.3 F 86 18 108/61 96
11/06/25 03:00 11/06/25 03:00 11/06/25 03:00 11/06/25 03:00 11/06/25 03:00
I&O
11/05/25 11/06/25 11/07/25
06:59 06:59 06:59
Intake Total 1080 / 1080
Output Total 300 / 300 550 / 550
Balance 780 / 780 -550 / -550
Review of Systems
-
History Source: Patient
Respiratory: Reports No Symptoms
Cardiac: Reports No Symptoms
Abdomen/GI: Reports No Symptoms
Musculoskeletal: Reports Edema (Bilateral)
Neuro: Reports No Symptoms
Physical Exam
-
General: Well Developed, Well Nourished and No Apparent Distress
Respiratory: Clear to Auscultation
Cardiac: S1/S2 and Irregular Rhythm
GI: Soft, Nontender and Nondistended
Musculoskeletal: Edema, Right Lower Extrem and Edema, Left Lower Extrem
Skin: Warm and Dry
Neuro: Awake, Alert, Oriented and AO x 3
Psych: Calm
[2025-11-06] MEDS: LOW STRENGTH ASPIRIN 81 MG PO (08:21)
[2025-11-06] MEDS: LASIX 40 MG IV ×2 (08:21→15:54)
[2025-11-06] MEDS: DIOVAN 80 MG PO (08:21)
[2025-11-06] MEDS: ALDACTONE 25 MG PO (08:21)
[2025-11-06] MEDS: TOPROL XL 50 MG PO ×2 (08:21→08:42)
[2025-11-06] MEDS: FARXIGA 10 MG PO (08:42)
[2025-11-06 09:09] LABS: COVID-19 Antigen Negative (Negative)
--- NOTE | 2025-11-06 09:39 | CON.CAR ---
Addendum entered and electronically signed by Filiberto Pruitt MD 11/06/25 12:16:
I reviewed and agree with the note by TRACEY Murillo and it accurately reflects our care.
I saw and evaluated the patient, and I provided the substantive portion of the medical decision making. My assessment and plan is below:
75-year-old man with hypertension, SWATI, obesity, and recently diagnosed heart failure with reduced ejection fraction who presents, after being discharged on 11/03/2025, with 4 pound weight gain. Patient reports he went home and was feeling well.
Ate dinner on Syl and had a lot of salty food. Did not pee much to the 20 mg Lasix. Woke up the next morning and was still feeling well but weighed himself and had gone up 4 pounds. After that he became very anxious and felt like he
could not breathe. He told his to call EMS. On arrival to the hospital he was hypoxic to 86% but this has now normalized and he is on no supplemental oxygen.
Physical exam: RRR, no murmurs, no crackles, no lower extremity edema
Acute on chronic HFrEF: Suspect current exacerbation is due to dietary indiscretion and underdosed Lasix. Agree with IV Lasix. On discharge would increase Lasix to p.o. 40 mg daily. SGLT2 inhibitor started by primary team. Will ensure that it is
affordable with patient. Continue metoprolol, valsartan, and spironolactone.
Nonobstructive coronary artery disease: Continue aspirin and atorvastatin
Original Note:
Consultation
Consultation Request
Date/Time Consultation Requested: 11/06/25824
Date/Time Consultation Performed: 11/06/2539
Requesting Provider: Dr. Mccarty
Performing Provider: Antoinette WEBB for Dr. Pruitt
Reason for Consultation: CHF
Medical History
-
Chief Complaint: SOB
History of Present Illness:
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 He was recently hospitalized for progressive NIETO and found to have acute HFrEF with EF 25-30%. Cardiac cath revealed this to be a NICM. He was diuresed
and GDMT was initiated. He was d/c'd on 11/03/25 and came back yesterday for weight gain (4 lbs in a day) and SOB and is being diuresed. O2 was as low as 86% on arrival, but is now normal. Also seen last admit to have multifocal atrial tachycardia
and started on BB as noted. Of note, he did report some foods ingested that were high in sodium (hamburger, bologna, cheese, clam chowder). 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
Past Medical History
Past Medical History: CHF, HTN and Other (as above)
Social History
Tobacco: Non-Smoker
Alcohol: None
Drug: None
Employment: Employed ([employer] )
Family History
Family History: Early CAD (dad)
Allergies / Home Medications
Allergy/AdvReac Type Severity Reaction Status Date / Time
No Known Allergies Allergy Verified 11/01/25 10:02
�Medication �Instructions �Recorded �Confirmed �Type
lutein 20 mg tablet 20 mg PO DAILY Supplement 11/01/16 11/05/25 History
docusate sodium 100 mg capsule 100 mg PO BID STOOL SOFTENER 10/22/20 11/05/25 History
multivitamin 1 tab PO DAILY Supplement 07/06/23 11/05/25 History
aspirin 81 mg chewable tablet 81 mg PO DAILY Non obstructive 11/03/25 11/05/25 Rx
coronary artery disease 30 days
#30 tabs
atorvastatin 10 mg tablet 10 mg PO QPM 30 days #30 tabs 11/03/25 11/05/25 Rx
furosemide 20 mg tablet 20 mg PO DAILY 30 days #30 tabs 11/03/25 11/05/25 Rx
metoprolol succinate 50 mg 50 mg PO DAILY 30 days #30 tabs 11/03/25 11/05/25 Rx
tablet,extended release 24 hr
spironolactone 25 mg tablet 25 mg PO DAILY 30 days #30 tabs 11/03/25 11/05/25 Rx
valsartan 80 mg tablet 80 mg PO DAILY 30 days #30 tabs 11/03/25 11/05/25 Rx
Review of Systems
-
History Source: Patient
All other systems: Negative unless noted
Constitutional: Weight Gain
Respiratory: Trouble Breathing
Physical Exam
Vital Signs
Temp Pulse Resp BP Pulse Ox
98.3 F 87 18 147/74 95
11/06/25 07:44 11/06/25 08:21 11/06/25 07:44 11/06/25 08:21 11/06/25 07:44
Lab Results
11/06/25 05:11
11/06/25 05:11
Troponin I 0.032 ng/ml 11/05/25 08:03
Uzm-B-Krogrkvxoar Pept 568 pg/ml 11/05/25 08:03
Physical Exam
General: Well Developed, Well Nourished and No Apparent Distress
HEENT: Normocephalic and Anicteric
Respiratory: Clear and Non Labored Respirations
Cardiac: Regular Rhythm
Musculoskeletal: Edema (mild BLE edema)
Skin: Warm and Dry
Neuro: AO x 3
Psych: Calm
Impression / Plan
-
Acute on chronic heart failure with reduced ejection fraction (EF 25-30%)/NICM:
-recent diagnosis
-GDMT: BB: On metoprolol- started on recent admission and increased this admit. HUSAM/ARB/ARNI: Entresto cost prohibitive per previous note. Valsartan 80 mg daily started on recent admission. MRA: Spironolactone 25 mg daily started on recent
admission. SGLT2 inhibitor: Cost prohibitive per previous note, but started this admit per primary team.
-Reassess for ICD after 3 months GDMT
-OP Lasix 20 mg daily- agree with IV diuresis, which requires intensive monitoring
-CHF education and diet ordered (recent dietary indiscretion)
Nonobstructive coronary artery disease
-He had very mild nonobstructive coronary artery disease on [facility] on 11/02/2025.
-continue ASA 81mg daily and Atorvastatin 10 mg daily
HTN:
-stable with recent med adjustments- monitor
Sleep apnea:
-stable in that he is compliant with bipap
hx multifocal atrial tachycardia:
-EKG and telemetry SR with PVC's
Data:
Echo 11/02/25:Dilated left ventricle with severely reduced left ventricular systolic function. There is global hypokinesis with regional variations. Estimated left ventricular ejection fraction is 25 to 30% by visual estimation. Stage I diastolic
dysfunction, suggestive of abnormal relaxation. Normal right ventricular size and systolic function. Mild aortic regurgitation which is eccentric with thickened aortic valve leaflets. Thickened mitral valve leaflets with mild mitral regurgitation.
No pericardial effusion.
Cath 11/02/25: Very mild nonobstructive coronary artery disease. This is clearly a nonischemic cardiomyopathy. Fairly well compensated filling pressures with moderately elevated pulmonary pressures and more markedly elevated LVEDP.
Data Reviewed
-
EKG: Tracing Personally Visualized and interpreted (SR with PVC's, IC RBBB, LVH- similar to previous)
Radiology: Report Reviewed by me (CXR: No acute disease of the chest. Mild right lung atelectasis versus scarring. Stable. Mild flattening of the diaphragms suggesting COPD. Progressed. Mild cardiomegaly.)
Medical Tests (Nuc Med, Echo etc): Report Reviewed by me (cath and echo as noted)
Labs: Labs Reviewed by me
--- NOTE | 2025-11-06 16:14 | CM ---
Patient is a 75-year-old male with history of hypertension and sleep apnea; admitted via ED for evaluation of dyspnea on exertion. Patient lives w/ spouse in a 2 story farmhouse with 1 entry step. Patient's son lives on the other side of the home.
Patient reports being independent w/ ambulation, and ADLs. He has been ambulatory in the hospital.
DME: Bipap at night.
Remote history of outpatient PT and VN.
Plan: Discharge to home when medically cleared. No needs identified at this time.
PCP: Aamir Avalos
Pharmacy: [facility] in [place]
[2025-11-06] MEDS: LOVENOX 40 MG SC (17:04)
[2025-11-06] MEDS: LIPITOR 10 MG PO (17:05)
[2025-11-07 02:34] VITALS: PULSE 2
[2025-11-07 03:12] VITALS: BP 120/66
[2025-11-07 05:37] VITALS: BMI 34.4
[2025-11-07 06:24] LABS: Hematocrit 44.6 % (39.0-52.0); Hemoglobin 15.2 g/dL (13.0-18.0); Mean Corp Hgb Conc. 34.1 g/dL (33.0-37.0); Mean Corpuscular Volume 88.0 fL (80.0-94.0); Platelet Count 203 10^3/uL (130-400); Red Cell Dist. Width 14.0 % (11.5-14.5)
[2025-11-07 06:51] LABS: Blood Urea Nitrogen 24 mg/dl (9-20); Calcium 9.4 mg/dl (8.4-10.2); Carbon Dioxide 30 mmol/L (22-30); Chloride 102 mmol/L (98-107); Estimated Creatinine Clearance 95 ml/min; Glucose 109 mg/dl (70-99); Potassium 3.8 mmol/L (3.5-5.1); Sodium 139 mmol/L (135-145); eGFR > 60.00
[2025-11-07 07:05] VITALS: BP 128/68
[2025-11-07] MEDS: LOW STRENGTH ASPIRIN 81 MG PO (08:28)
[2025-11-07] MEDS: TOPROL XL 100 MG PO (08:28)
[2025-11-07] MEDS: DIOVAN 80 MG PO (08:28)
[2025-11-07] MEDS: FARXIGA 10 MG PO (08:28)
[2025-11-07] MEDS: ALDACTONE 25 MG PO (08:29)
[2025-11-07] MEDS: LASIX 40 MG IV (08:29)
--- NOTE | 2025-11-07 10:07 | W.PN.HOSP.TC ---
Today's Communication/Plan
-
Transition to oral diuretics on 11/08
Continue GDMT at discharge
Discharge home today
Education on sodium restricted diet
Assessment / Plan
Assessment / Plan
75-year-old male with newly diagnosed HFrEF due to nonischemic cardiomyopathy with LVEF near 30%, multifocal atrial tachycardia, primary hypertension, SWATI on nightly BiPAP who is presenting to the ED today with a complaint of shortness of breath.
Patient was recently discharged on 11/03 after hospitalization for newly diagnosed NICM, had [facility] with nonobstructive CAD at the time. Was titrated onto GDMT and received IV diuresis before being transition to Lasix 20 mg at the time of discharge.
States that over the last 2 days he has gained 4 pounds and developed cough with shortness of breath. Denies chest pain, dyspnea, palpitations, fevers or chills, sputum production. Upon arrival AFVSS, labs unremarkable. BNP 568, troponin
negative. CXR demonstrating signs of pulmonary congestion bilaterally on prelim read. ECG without ischemic findings, showed NSR with occasional PVCs. In the ED was given IV Lasix 60 mg and placed onto 4 L of supplemental oxygen via NC. Upon
speaking with the patient he states that after discharge he did have a hamburger, some bologna, cheese, clam chowder. Denies any other high sodium foods including chips and Syriac fries.
PLAN:
#Acute on chronic HFrEF due to non ischemic cardiomyopathy
recent echo at last admission EF 30%
unclear etiology to his heart failure, possibly rate mediated as he has had frequent PVCs and MAT on recent hospital stay
Current GDMT of metoprolol XL, spironolactone, valsartan (SGLT2i was unaffordable)
Discharged on Lasix 20 mg, weight increased 4 pounds per history though BNP near 570 , Started on IV Lasix in the ED, will continue with IV Lasix at 40 mg once daily
Continue current GDMT
Trend I's and O's, weights, BMP.
Plan to transition to Lasix 40 mg at discharge, sodium restricted diet
Resume home GDMT at discharge
#Multifocal atrial tachycardia, PVCs
ECG here without MAT at this time. R
Increased his metoprolol succinate to 100 mg daily
Monitor on telemetry
Diet -- Low sodium, patient and family educated on importance of monitoring sodium intake
DVT -- SQ Lovenox
Code -- Full
Anticipated Discharge: Today
Subjective/Interval History
-
Date of Service: November 07, 2025
Seen and examined bedside. No acute events reported overnight. AFVSS on room air
Patient states he feels well today and denies any complaints. Denies dyspnea at rest or with exertion.
Weight downtrending, I's and O's net -1700 mL, renal function stable
Objective Data
-
Labs:
Laboratory Results
11/07/25
06:17
WBC 8.5
Hgb 15.2
Hct 44.6
Plt Count 203
Sodium 139
Potassium 3.8
Chloride 102
Carbon Dioxide 30
BUN 24 H
Creatinine 0.8
Glucose 109 H
Calcium 9.4
Vital Signs:
Vital Signs
Temp Pulse Resp BP Pulse Ox
98.0 F 86 19 128/68 99
11/07/25 07:05 11/07/25 08:28 11/07/25 07:05 11/07/25 08:28 11/07/25 07:05
I&O
11/06/25 11/07/25 11/08/25
06:59 06:59 06:59
Intake Total 1080 / 1080 1080 / 1080
Output Total 300 / 300 3400 / 3400
Balance 780 / 780 -2320 / -2320
Review of Systems
-
History Source: Patient
All other systems: Reviewed and negative
Physical Exam
-
General: Well Developed, No Apparent Distress and Obese
HEENT: Normocephalic, Atraumatic, Moist Mucous Membranes and Anicteric
Respiratory: Clear to Auscultation and Non Labored Respirations; Negative Accessory Resp Muscle Use
Cardiac: Regular Rhythm and S1/S2; Negative Murmur, Rub or Gallop
GI: Soft, Nontender, Nondistended and Normal Bowel Sounds
Musculoskeletal: No Clubbing, No Cyanosis and No Edema
Skin: Warm and Dry; Negative Rash
Neuro: AO x 3, Nonfocal/Grossly Intact and Central Nerve's Intact
Psych: Calm
Data Reviewed
-
Labs: Labs Reviewed by me, Discussed with Physician (cardiology) and Discussed with Patient
--- NOTE | 2025-11-07 10:23 | CM ---
Addendum entered by Danika Reina 11/07/25 11:43:
First month free coupon provided, patient is agreeable to cost of medication.
Original Note:
Cost of Farxiga is $140 per month
Plan Home with spouse when stable.
[2025-11-07 11:01] VITALS: BP 108/59
== END 2025-11-07 12:04 | disposition home or self-care (01) | DRG 292 ==
LOC: 3 WEST ACU 10:55
PROVIDERS: Emergency Medicine; Nurse Practitioner; Specialist Research Data Abstracter/Coder; ADMITTING PHYSICIAN Internal Medicine; CONSULT PHYSICIAN Student in an Organized Health Care Education/Training Program; EMERGENCY PHYSICIAN Emergency Medicine; FAMILY PHYSICIAN Internal Medicine
PROC: 5A09357 Assistance with Respiratory Ventilation, Less than 24 Consecutive Hours, Continuous Positive Airway Pressure (ICD-10-PCS; 2025-11-05)
DX: I11.0 Hypertensive heart disease with heart failure (principal); I47.19 Other supraventricular tachycardia; I50.22 Chronic systolic (congestive) heart failure; I42.8 Other cardiomyopathies; E66.9 Obesity, unspecified; G47.33 Obstructive sleep apnea (adult) (pediatric); I25.10 Atherosclerotic heart disease of native coronary artery without angina pectoris; I49.3 Ventricular premature depolarization; Z11.52 Encounter for screening for COVID-19; Z68.34 Body mass index [BMI] 34.0-34.9, adult; Z79.899 Other long term (current) drug therapy; Z79.82 Long term (current) use of aspirin
CPT/HCPCS: 71045; 80048; 80053; 83880; 84484; 85025; 85027; 87502; 87811; 93005; 94660; 96374; 99291